=== PATIENT | female | born 1985 | race Caucasian/White ===

== ENCOUNTER 2019-07-02 20:51 | Inpatient (IN) | payer MEDICARE, MEDICAID ==
--- NOTE | 2019-07-02 21:14 | ED ---
Medical Screening - HPI Summary HPI Summary: Patient with history of schizo affective disorder and bipolar presents with father wishing for mental health evaluation. Patient was calm in the waiting room, but during history of present illness was angry and loud with rambling speech. Father states he is concerned she is starting a manic episode, concerned she is a threat to herself. Patient denies SI, HI, any symptoms of illness, injury or pain. Upon secondary evaluation with attending Dr. Webster patient started screaming, talking about another life. Denies EtOH or recreational drug use. - History of Current Complaint Chief Complaint: EDPsychosocial Stated Complaint: MHE PER PT Time Seen by Provider: 07/02/19 21:12 Onset/Duration: Started Hours Ago Severity: moderate PMH/Surg Hx/FS Hx/Imm Hx Endocrine/Hematology History: Reports: Hx Thyroid Disease Cardiovascular History: Reports: Hx Hypercholesterolemia, Hx Hypertension Denies: Hx Pacemaker/ICD Respiratory History: Reports: Hx Asthma History: Denies: Hx Dialysis Sensory History: Reports: Hx Contacts or Glasses, Hx Vision Problem Denies: Hx Hearing Aid Opthamlomology History: Reports: Hx Contacts or Glasses, Hx Vision Problem EENT History: Denies: Hx Deafness Psychiatric History: Reports: Hx Anxiety, Hx Depression, Hx Inpatient Treatment , Hx Community Mental Health Tx, Hx Schizophrenia, Hx Bipolar Disorder, Hx Suicide Attempt - OD now & in late teens, Hx of Violent Episodes Against Others Denies: Hx Attention Deficit Hyperactivity Disorder, Hx Eating Disorder, Hx Panic Disorder, Hx Post Traumatic Stress Disorder, Hx Substance Abuse, Other Psychiatric Issues/Disorders - Cancer History Cancer Type, 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 Infectious Disease History: No Infectious Disease History: Denies: Traveled Outside the [place] in Last 30 Days - Family History Known Family History: Positive: Non-Contributory - Social History Alcohol Use: None Substance Use Type: Reports: None Smoking Status (MU): Current Every Day Smoker Type: Cigarettes Amount Used/How Often: 1-11/2 packs per day Review of Systems Constitutional: Negative Eyes: Negative ENT: Negative Cardiovascular: Negative Respiratory: Negative Gastrointestinal: Negative Genitourinary: Negative Musculoskeletal: Negative Skin: Negative Neurological: Negative Positive: Other All Other Systems Reviewed And Are Negative: Yes Physical Exam - Summary Physical Exam Summary: Patient angry, screaming, rambling speech. Coherent, alert and oriented, no visible sign of intoxication. Triage Information Reviewed: Yes Vital Signs On Initial Exam: Initial Vitals Temp Pulse Resp BP Pulse Ox 97.3 F 117 20 150/119 97 07/02/19 21:00 07/02/19 21:00 07/02/19 21:00 07/02/19 21:00 07/02/19 21:00 Vital Signs Reviewed: Yes Appearance: Positive: Well-Appearing Skin: Positive: Warm Head/Face: Positive: Normal Head/Face Inspection Eyes: Positive: Normal Neck: Positive: Supple Respiratory/Lung Sounds: Positive: Clear to Auscultation Cardiovascular: Positive: Normal Abdomen Description: Positive: Nontender Musculoskeletal: Positive: Normal Neurological: Positive: Normal Psychiatric: Positive: Other AVPU Assessment: Alert - Diya Coma Scale Best Eye Response: 4 - Spontaneous Best Motor Response: 6 - Obeys Commands Best Verbal Response: 5 - Oriented Coma Scale Total: 15 Diagnostics - Vital Signs Vital Signs Temp Pulse Resp BP Pulse Ox 07/02/19 21:00 97.3 F 117 20 150/119 97 - Laboratory Result Diagrams: 07/02/19 22:41 07/02/19 22:41 Lab Statement: Any lab studies that have been ordered have been reviewed, and results considered in the medical decision making process. Course/Dx - Course Course Of Treatment: Patient with history of schizo affective disorder and bipolar presents with father wishing for mental health evaluation. Patient was calm in the waiting room, but during history of present illness was angry and loud with rambling speech. Father states he is concerned she is starting a manic episode, concerned she is a threat to herself. Patient denies SI, HI, any symptoms of illness, injury or pain. Upon secondary evaluation with attending Dr. Webster patient started screaming, talking about another life. Denies EtOH or recreational drug use. B-52 administered for agitation. Vital signs within normal limits. Labs unremarkable. Involuntarily admission per Dr. Hayden of mental health. - Diagnoses Provider Diagnoses: Bipolar 1 disorder Discharge ED - Sign-Out/Discharge Documenting (check all that apply): Patient Departure - Discharge Plan Condition: Good [place] [place] Disposition and Condition Condition: GOOD Disposition[place] [facility] [place]
[2019-07-02] MEDS ORDERED: LORazepam INJ* 2 MG/ML 1 ML VIAL ONE (21:42)
[2019-07-02] MEDS ORDERED: diPHENhydraMINE IV* 50 MG/ML 1 ml VIAL (BENADRYL) ONE (21:50)
[2019-07-02] MEDS ORDERED: Haloperidol INJ IV/IM* 5 MG/ML AMP ONE (21:50)
[2019-07-02 22:58] LABS: ABS Basophils 0.1 10^3/ul (0-0.2); ABS Lymphocytes 2.7 10^3/ul (1.0-4.8); ABS Monocytes 0.5 10^3/ul (0-0.8); ABS Neutrophils 5.7 10^3/ul (1.5-7.7); Hematocrit 40 % (35-47); Hemoglobin 13.7 g/dL (12.0-16.0); Lymphocyte % 30.4 %; Mean Corpuscular HGB Conc 34 g/dL (31-36); Mean Corpuscular Hemoglobin 29 pg (27-31); Mean Corpuscular Volume 85 fL (80-97); Nucleated Red Blood Cells % 0.1; Platelet Count 277 10^3/uL (150-450); Red Blood Count 4.74 10^6 /uL (3.70-4.87); Red Cell Distribution Width 14 % (10-15)
[2019-07-02 23:04] LABS: ALT 19 U/L (7-52); AST 18 U/L (13-39); Albumin 4.2 g/dL (3.2-5.2); Albumin/Globulin Ratio 1.6 (1-3); Alkaline Phosphatase 82 U/L (34-104); Anion Gap 9 mmol/L (2-11); BUN/Creatinine Ratio 16.9 (8-20); Blood Urea Nitrogen 13 mg/dL (6-24); CO2 Carbon Dioxide 24 mmol/L (22-32); Calcium 9.1 mg/dL (8.6-10.3); Chloride 106 mmol/L (101-111); EGFR African American 103.8 (>60); EGFR Non-African American 85.8 (>60); Globulin 2.6 g/dL (2-4); Glucose 120 mg/dL (70-100); Potassium 3.5 mmol/L (3.5-5.0); Sodium 139 mmol/L (135-145); Total Protein 6.8 g/dL (6.4-8.9)
[2019-07-02 23:06] LABS: Acetaminophen < 15 mcg/mL; Alcohol < 10 mg/dL (<10); Salicylate < 2.50 mg/dL (<30)
[2019-07-02 23:21] LABS: TSH (Thyroid Stimulating Horm) 3.31 mcIU/mL (0.34-5.60)
[2019-07-03] MEDS ORDERED: Acetaminophen TAB* 325 MG PO PRN (03:18)
[2019-07-03] MEDS ORDERED: Al Hydrox/Mg Hydrox/Simet LIQ* 30 ML UDC PO PRN (03:18)
[2019-07-03] MEDS: CloZAPine TAB* 25 MG TAB ONE ×2 (03:45→03:57)
[2019-07-03] MEDS ORDERED: Albuterol HFA INHALER* 8 gm MDI INH PRN (14:33)
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
[2019-07-03] MEDS ORDERED: CloZAPine TAB* 25 MG TAB PO SCH (21:00)
[2019-07-03] MEDS: CloZAPine TAB* 100 MG TAB PO SCH (22:08)
[2019-07-03] MEDS ORDERED: Temazepam CAP* 15 MG PO ONE (23:12)
[2019-07-03] MEDS: Vitamin THERAPEUTIC TAB PO SCH (23:20)
[2019-07-04 09:07] LABS: HDL Cholesterol 36.6 mg/dL
[2019-07-04] MEDS: Vitamin THERAPEUTIC TAB PO SCH (10:27)
--- NOTE | 2019-07-04 21:17 | PN ---
Subjective - Subjective Date of Service: 07/04/19 Service Type: 27208 Hosp care 15 min low complexity Subjective: Hugo reports doing well here, reporting she is not a threat to herself or others. Reports having benefitted from the milieu, and has enjoyed the recreational activities. Reports she slept well last night again. She denies any dangerous intent or plan. Objective - General Observations Appearance: Well Groomed Appears Stated Age: Yes Stature: Overweight Posture: WNL Eye Contact: Average Behavior/Activity: WNL - Interaction Observations Attitude Towards Examiner: Cooperative Stated Mood: Euthymic Affect: Full Speech Pattern/Tone: Clear, Appropriate, Normal Volume, Rambling Thought Process: Coherent, Goal Directed Perception: WNL Thought Content: WNL Hallucination Type: None, Denies Delusion Type: None, Denies - Cognitive Function Orientation: A&O x 4 Cognition: WNL Estimated Intelligence: Normal Insight: WNL Judgment Within Normal Limits: Yes Ability to Make Reasonable Decisions: Mildly Impaired - Medication Compliance Cooperative with Inpatient Medication Regimen: Yes - Group Participation Participates in Group Activities: Yes Assessment - Assessment Merits Inpatient Hospitalization: For Stabilization, Consolidate Improvements Clinical Impression: Hugo reports rapid recompensation following 2 good nights of sleep. Explained last night's events leading to giving temazepam for sleep as related to her inclination to speak in tongues. Agrees she will try not to speak in tongues again, but reports she does not want to make a promise she cannot keep. Plan - Plan Treatment Plan: Name: HUGO ANDERS Birthdate: 1985 [id number] Encourage continued engagement in the milieu and med compliance. If recompensation holds with good sleep, may be ready for discharge as planned on Saturday. Continued Medication Management: Continue Outpt Medication Medications: Current Medications Acetaminophen (Tylenol Tab*) 650 mg PO Q4H PRN PRN Reason: PAIN or TEMP > 101 F Al Hydrox/Mg Hydrox/Simethicone (Maalox Plus*) 30 ml PO Q4H PRN PRN Reason: INDIGESTION Albuterol (Ventolin Hfa Inhaler*) 2 puff INH Q2H PRN PRN Reason: SOB/WHEEZING Clozapine (Clozapine Tab*) 400 mg PO BEDTIME ROCÍO Last Admin: 07/03/19 22:08 Dose: 400 mg Multivitamins (Theragran Tab*) 1 tab PO DAILY ROCÍO Last Admin: 07/04/19 10:27 Dose: Not Given Nicotine Polacrilex (Nicotine Gum*) 2 mg PO Q2H PRN PRN Reason: CRAVINGS - Discharge Plan Discharge Plan: Outpatient Follow Up Outpatient Program: [facility]
[2019-07-04] MEDS: CloZAPine TAB* 100 MG TAB PO SCH (21:33)
[2019-07-05] MEDS ORDERED: LORazepam TAB(*) 1 MG ONE (07:49)
[2019-07-05] MEDS ORDERED: LORazepam TAB(*) 1 MG PO ONE (08:00)
[2019-07-05] MEDS: Vitamin THERAPEUTIC TAB PO SCH (09:27)
[2019-07-05] MEDS ORDERED: chlorproMAZINE TAB* 25 MG ONE (14:55)
[2019-07-05] MEDS ORDERED: chlorproMAZINE TAB* 25 MG PO ONE (15:00)
[2019-07-05] MEDS ORDERED: diPHENhydraMINE IV* 50 MG/ML 1 ml VIAL (BENADRYL) ONE (15:21)
[2019-07-05] MEDS ORDERED: chlorproMAZINE INJ* 25 MG/ML 2 ML (50 MG) ONE (15:22)
[2019-07-05] MEDS ORDERED: LORazepam INJ* 2 MG/ML 1 ML VIAL ONE (15:26)
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
[2019-07-05] MEDS: CloZAPine TAB* 100 MG TAB PO SCH (22:12)
[2019-07-06] MEDS: Vitamin THERAPEUTIC TAB PO SCH (09:42)
[2019-07-06] MEDS ORDERED: chlorproMAZINE TAB* 100 MG PO PRN (11:13)
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
[2019-07-06] MEDS ORDERED: Divalproex DR TAB(*) 500 MG PO SCH (21:00)
[2019-07-06] MEDS: CloZAPine TAB* 100 MG TAB PO SCH (21:43)
[2019-07-06] MEDS: LORazepam TAB(*) 1 MG PO SCH (21:43)
[2019-07-07] MEDS: LORazepam TAB(*) 1 MG PO PRN (08:55)
[2019-07-07] MEDS: Vitamin THERAPEUTIC TAB PO SCH (08:55)
[2019-07-07] MEDS ORDERED: Divalproex DR TAB(*) 500 MG PO SCH (09:00)
[2019-07-07] MEDS: Nicotine* 2MG (FRUIT FLAVOR) GUM PO PRN ×2 (09:48→20:35)
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
[2019-07-07] MEDS: OXcarbazepine TAB(*) 300 MG PO SCH (22:07)
[2019-07-07] MEDS: CloZAPine TAB* 100 MG TAB PO SCH (22:08)
[2019-07-07] MEDS: LORazepam TAB(*) 1 MG PO SCH (22:09)
[2019-07-08] MEDS: OXcarbazepine TAB(*) 300 MG PO SCH ×2 (10:38→22:03)
[2019-07-08] MEDS: Vitamin THERAPEUTIC TAB PO SCH (10:38)
--- NOTE | 2019-07-08 12:48 | PN ---
BSU: Group Therapy Note - Service Type Service Type: [id number] Group Psychotherapy - Cognitive Behavioral Group Therapy ( CBT):Patient presented in CBT programming as disorganized and disruptive in discussion and needed repeated redirection to attend to presented materials.
[2019-07-08] MEDS: Nicotine* 2MG (FRUIT FLAVOR) GUM PO PRN ×2 (13:52→17:35)
[2019-07-08] MEDS: LORazepam TAB(*) 1 MG PO PRN (14:44)
--- NOTE | 2019-07-08 16:35 | PN ---
Subjective - Subjective Date of Service: 07/08/19 Service Type: 11287 Hosp care 25 min moderate complexity Subjective: Hugo is doing well. She and I met with her friend Jazmin and discussed goals and restrictions that she would like to put in place. She acknowledges that she sometimes "bite[s] off more than I can chew." She is planning on taking some days off for herself to reorganize what she would like to do. For example, she is interested in taking fewer classes at 3 and also working a bit less. Objective - General Observations Appearance: Neat Appears Stated Age: Yes Stature: Overweight Posture: WNL Eye Contact: Average Behavior/Activity: WNL - Interaction Observations Attitude Towards Examiner: Cooperative, Anxious Stated Mood: Dysphoric Affect: Blunted Speech Pattern/Tone: Clear Thought Process: Coherent Perception: WNL Thought Content: Preoccupation/Ruminations Hallucination Type: None Delusion Type: None - Cognitive Function Orientation: A&O x 4 Level of Consciousness: Awake, Alert, Appropriate Cognition: WNL Estimated Intelligence: Normal Insight: WNL Judgment Within Normal Limits: Yes - Medication Compliance Cooperative with Inpatient Medication Regimen: Yes - Group Participation Participates in Group Activities: Yes Assessment - Assessment Merits Inpatient Hospitalization: For Immediate Safety Inpatient DSM-V Dx: F25.0 Clinical Impression: Hugo is a 33-year-old white woman who is diagnosed with schizoaffective disorder. She came to the hospital with her father because she had been speaking about odd thoughts and then became violent in the Emergency Department. She is now calmer and taking medications that will affect her mood stability. Plan - Plan Treatment Plan: Name: HUGO ANDERS Birthdate: 1985 [id number] 07/05/19 Hugo reports rapid recompensation following 2 good nights of sleep. Explained last night's events leading to giving temazepam for sleep as related to her inclination to speak in tongues. Agrees she will try not to speak in tongues again, but reports she does not want to make a promise she cannot keep. Encourage continued engagement in the milieu and med compliance. If recompensation holds with good sleep, may be ready for discharge as planned on Saturday. 07/06/19 Hugo continues to be very symptomatic. We will add Depakote 500 QAM and 1000 QHS, as this is what she used to take about four years ago when she was outpatient. I will also include Ativan at bedtime to help her sleep. Discharge is still likely this week. 07/07/19 Hugo is improved. She appears to be at baseline. Unfortunately, this fluctuation in healthy behavior has happened before with decompensation following it. We will start Trileptal tonight 300 mg BID. 07/08/19 Hugo is stabilizing. She did not decompensate in any detectable way today. She is doing well and on schedule to be discharged tomorrow. Continued Medication Management: Different Medication Medications: Current Medications Acetaminophen (Tylenol Tab*) 650 mg PO Q4H PRN PRN Reason: PAIN or TEMP > 101 F Al Hydrox/Mg Hydrox/Simethicone (Maalox Plus*) 30 ml PO Q4H PRN PRN Reason: INDIGESTION Albuterol (Ventolin Hfa Inhaler*) 2 puff INH Q2H PRN PRN Reason: SOB/WHEEZING Chlorpromazine HCl (Thorazine Tab*) 100 mg PO Q3H PRN PRN Reason: AGITATION Clozapine (Clozapine Tab*) 400 mg PO BEDTIME [facility] Last Admin: 07/07/19 22:08 Dose: 400 mg Lorazepam (Ativan Tab(*)) 2 mg PO Q6H PRN PRN Reason: Anxiety/agitation Last Admin: 07/08/19 14:44 Dose: 2 mg Lorazepam (Ativan Tab(*)) 1 mg PO BEDTIME [facility] Last Admin: 07/07/19 22:09 Dose: 1 mg Multivitamins (Theragran Tab*) 1 tab PO DAILY [facility] Last Admin: 07/08/19 10:38 Dose: 1 tab Nicotine Polacrilex (Nicotine Gum*) 2 mg PO Q2H PRN PRN Reason: CRAVINGS Last Admin: 07/08/19 13:52 Dose: 2 mg Oxcarbazepine (Trileptal Tab(*)) 300 mg PO BID [facility] Last Admin: 07/08/19 10:38 Dose: 300 mg - Discharge Plan Discharge Plan: Outpatient Follow Up Outpatient Program: [facility]
--- NOTE | 2019-07-08 16:38 | PN ---
BSU: Group Therapy Note - Service Type Service Type: [id number] Group Psychotherapy - Medication Education Group: Patient joined group and was intermittently in room. Patient asked questions that were not particularly on topic. Patient receptive to redirection when monopolizing group.
[2019-07-08] MEDS: LORazepam TAB(*) 1 MG PO SCH (22:03)
[2019-07-08] MEDS: CloZAPine TAB* 100 MG TAB PO SCH (22:03)
[2019-07-09] MEDS: OXcarbazepine TAB(*) 300 MG PO SCH (10:19)
[2019-07-09] MEDS: Vitamin THERAPEUTIC TAB PO SCH (10:19)
[2019-07-09 11:43] VITALS: BP 140/85
[2019-07-09] MEDS: Nicotine* 2MG (FRUIT FLAVOR) GUM PO PRN (14:12)
--- NOTE | 2019-07-10 01:49 | DS ---
CC: [facility]; Dr. Jimenez * DISCHARGE SUMMARY: DATE OF ADMISSION: 07/03/19 DATE OF DISCHARGE: 07/09/19 PROVIDER: Carrie Bhandari NP in Psychiatry. SUPERVISING PHYSICIAN: Peter Hayden MD * (DICTATED BY CARRIE BHANDARI NP ) DIAGNOSIS: Schizoaffective disorder, bipolar type. CONDITION AT THE TIME OF DISCHARGE: Improved, psychiatrically cleared, stable. Niya participated in groups and was social with peers. Her father is agreeable to her discharge, as is Niya. She has done well here psychiatrically. She tolerated the addition of Trileptal well. She will be attending [facility]. MENTAL STATUS EXAM: At the time of discharge, Niya is calm, cooperative, and makes good eye contact. She is alert and oriented x4. Her grooming is adequate. Her speech pace is slightly slowed. Thought processes are logical. She is not psychotic or delusional. She denies AH, VH, SI, and HI. Insight and judgment are fair to good. She is willing to follow up and urged to see a therapist. DISCHARGE INSTRUCTIONS TO THE PATIENT: A. Medications: 1. Albuterol inhaler 2 puffs q.2 hours p.r.n. shortness of breath. 2. Clozapine 400 mg at bedtime. 3. Trileptal 300 mg twice a day, dispensed 60. B. Diet is regular. C. Activities are as tolerated. She is a smoker but has declined a referral to the [facility] Smokers' Quitline at this time. If she decides to access this free service in the future, she can contact the Quitline toll free at . There are no studies pending at the time of discharge. D. Followup care: She has an appointment at [facility] with Ella Perez on 07/13/19 at 9:40 in the morning. She agreed to participate in the CAP Cohort, which can assist the patients with transportation to their first appointments and followups. Niya will also be followed by [facility] as part of the cohort. She is asked to potentially use Medicaid transportation services. She can call [phone]. Her Medicaid number is [id number] and she will receive instruction and how to use that service. She also is recommended to make an appointment with her primary care provider, Dr. Yanet Jimenez and that person is on [address] at [facility]. E. Disposition: Niya is being discharged home with her father where they live together. F. Substance abuse followup is not indicated. HOSPITAL COURSE: A. Chief complaint: "I was talking to my dad about some thoughts I was having and it made him worry, I am upset to be here." Niya is a 33-year-old single white female with a history of schizoaffective disorder, who arrives brought in by the police and her father and is here on a 9.39 status after engaging in some very disorganized behavior before her arrival in the emergency department and once she was there she was discussing being experimented on by a chip from the president. She was discussing the Bible and court. She talked about telepathy, mind control and she also tried to elope from the emergency department. When I meet with Niya, she is organized, pleasant, although drowsy. She states she was having thoughts that she was sharing with her dad that she is currently dismissive of these thoughts and states that they are "stuff mostly about the past, present and future." Niya is very tired at this point, perhaps in part due to the fact that she is not getting enough sleep. She is only getting 5 to 6 hours of sleep in the morning. She also moved on 06/27/19 and recently started [facility] [employer] for [email or web address] services. At this point, seeing her makes it unclear why she was admitted. She appears to be organized and logical though tired. Reading the evaluation, however, makes it clear that she required admission. At this point, she does not have a significant number of symptoms that would cause me to categorize her as having balbir or psychosis. She is a little indiscrete, her gown she is wearing is up around her upper thighs, but it is not done in a provocative way, she simply appears to be careless. She does have a sleep deficit, but it is not due to balbir, it is due to her having more things to do in her life than she is used to having. B. Psychiatric treatment was rendered. Niya was admitted to the adult behavioral unit and placed on 15-minute checks for her own safety. She did advance to 30-minute checks and staff pass. On 07/05/19, Niya reported rapid re-compensation following 2 good nights of sleep. She explained that there were events (delusions and disorganized behavior) on 07/04/19 that required her getting temazepam for sleep, which was related to her inclination to speak in tongues. She agreed at that point she would try not to speak in tongues again but reports also that she does not want to make a promise she could not keep. On that day, we encouraged continued engagement in the milieu and medication compliance. If the recompensation had held with good sleep, she could have been ready for discharge as planned on Saturday (07/06/19). On 07/06/19, Niya continued to be very symptomatic: she was manic, she would walk naked down the halls, and behave very strangely. We added Depakote 500 in the morning and 1000 at bedtime as this is what she used to take approximately 4 years ago when she was outpatient. I also included Ativan at bedtime to help her sleep. At that point, we believed discharge to still be likely that week. On 07/07/19, Niya improved. She appeared to be at her baseline. Unfortunately , this fluctuation in healthy behavior has happened before with decompensation following it. We will start Trileptal tonight at 300 mg b.i.d. On 07/08/19, Niya continued to stabilize and she did not decompensate in any detectable way today. She is doing well and on schedule to be discharged tomorrow. On 07/09/19, Niya was pleasant, she was clean and tidy, she packed her belongings and was eager to leave at the 4 p.m. discharge time with her father. No medications were discontinued from home. She maintained being on clozapine 400 at bedtime and she tolerated the Trileptal 300 b.i.d. I was hoping to increase that before she left, but she was not here for long enough to do that. It should be noted that her hemoglobin A1c is 5.5. Her triglycerides are 163 , cholesterol is 162, LDL cholesterol is 93, HDL cholesterol is 36.3. Incidentally, her TSH is 3.31. On 07/02/19, her red blood cells were 4.74, her white blood cells were 9.0, absolute neutrophils were 5.7. I did speak with her father, Frankie, he was pleasant and eager to have her come home as long as she was well. He was even willing to take her a day early , but we believed that having an additional day for stabilization would be beneficial for Niya. It was discussed with Niya that she needs to sleep regularly and needs to get about 8 hours or more every night. It was discussed that she tends to "bite off more than I can chew" and she was encouraged to consider cutting back on her [employer] obligations. She does also want a job, but she was cautioned that she needs to be careful with how much she takes on. She is future oriented and is significantly improved. She is not distractible. She recognizes that walking naked down the [place] is inappropriate and not something she would normally do, but stopped short of agreeing that she was manic. Her ideas are more focused, her activity is normal, she is sleeping well, and she is appropriately talkative. CARRIE BHANDARI, MONICO [id number]/[facility] #: [id number] [place]
== END 2019-07-09 17:56 | disposition home or self-care (01) | DRG 885 ==
LOC: ED 20:51 → BSU 07-03 03:24
PROVIDERS: ADMIT Psychiatry & Neurology Psychiatry; ATTEND Psychiatry & Neurology Psychiatry
PROC: GZHZZZZ Group Psychotherapy (ICD-10-PCS; principal; 2019-07-08)
DX: F25.0 Schizoaffective disorder, bipolar type (principal); Z68.42 Body mass index [BMI] 45.0-49.9, adult; E78.00 Pure hypercholesterolemia, unspecified; I10 Essential (primary) hypertension; J45.909 Unspecified asthma, uncomplicated; F41.9 Anxiety disorder, unspecified; F32.9 Major depressive disorder, single episode, unspecified; F17.210 Nicotine dependence, cigarettes, uncomplicated; E66.9 Obesity, unspecified; E03.9 Hypothyroidism, unspecified; Z91.5 Personal history of self-harm; Z85.89 Personal history of malignant neoplasm of other organs and systems; Z81.8 Family history of other mental and behavioral disorders
CPT/HCPCS: 36415; 80053; 80061; 80320; 80329; 83036; 84443; 85025; 90853; 99222; 99231; 99232; 99238; 99284; A9270-GY; G0480; J1200; J1630; J2060

== ENCOUNTER 2019-07-22 19:38 | Inpatient (IN) | payer MEDICARE, MEDICAID ==
[2019-07-22 20:24] LABS: ABS Basophils 0.1 10^3/ul (0-0.2); ABS Lymphocytes 2.8 10^3/ul (1.0-4.8); ABS Monocytes 0.7 10^3/ul (0-0.8); ABS Neutrophils 7.7 10^3/ul (1.5-7.7); Hematocrit 40 % (35-47); Hemoglobin 13.5 g/dL (12.0-16.0); Mean Corpuscular HGB Conc 34 g/dL (31-36); Mean Corpuscular Hemoglobin 29 pg (27-31); Mean Corpuscular Volume 85 fL (80-97); Mean Platelet Volume 7.8 fL (7.4-10.4); Platelet Count 267 10^3/uL (150-450); Red Blood Count 4.73 10^6 /uL (3.70-4.87); Red Cell Distribution Width 14 % (10-15); White Blood Count 11.4 10^3/uL (3.5-10.8)
[2019-07-22 20:28] LABS: Urine Appearance Clear; Urine Bilirubin Negative (Negative); Urine Blood Negative (Negative); Urine Color Yellow; Urine Glucose Negative (Negative); Urine Ketones Negative (Negative); Urine Nitrite Negative (Negative); Urine Protein Negative (Negative); Urine Specific Gravity 1.015 (1.010-1.030); Urine Urobilinogen Negative (Negative)
[2019-07-22 20:44] LABS: ALT 14 U/L (7-52); AST 12 U/L (13-39); Albumin 4.2 g/dL (3.2-5.2); Albumin/Globulin Ratio 1.6 (1-3); Alkaline Phosphatase 90 U/L (34-104); Anion Gap 10 mmol/L (2-11); BUN/Creatinine Ratio 18.8 (8-20); Blood Urea Nitrogen 12 mg/dL (6-24); CO2 Carbon Dioxide 22 mmol/L (22-32); Calcium 9.3 mg/dL (8.6-10.3); Chloride 107 mmol/L (101-111); EGFR African American 128.5 (>60); EGFR Non-African American 106.2 (>60); Globulin 2.6 g/dL (2-4); Glucose 107 mg/dL (70-100); Potassium 3.4 mmol/L (3.5-5.0); Sodium 139 mmol/L (135-145); Total Protein 6.8 g/dL (6.4-8.9)
[2019-07-22 20:46] LABS: Urine Benzodiazepine Screen None Detected (None Detect); Urine Opiates Screen None Detected (None Detect)
[2019-07-22 20:50] LABS: HCG Pregnancy < 0.60 mIU/mL
[2019-07-22 20:56] LABS: Acetaminophen < 15 mcg/mL; Alcohol < 10 mg/dL (<10); Salicylate < 2.50 mg/dL (<30)
--- NOTE | 2019-07-22 21:08 | ED ---
Psychiatric Complaint - HPI Summary HPI Summary: Pt is a 33 y/o F presenting to the ED for a MHE. Pt reports recent stress and racing thoughts. Pt was previously seen at [facility] on 07/14/2019 and had her medication changed to Topiramate which she has taken for 2 weeks. She states that she believes that she was discharged too early. Pt reports she does not like being at home and she lives in [place] with her parents. She describes auditory and visual hallucinations as things are not what they appear to be . Patient reports Hx of self-harm and notes Hx of suicide attempts via OD on medications. Pt has a PMHx of affective schizophrenia for which she is being currently treated and a FMHx of cancer. Pt takes Papilperidone. Pt is allergic to Sulfa drugs. She admits she smokes cigarettes but denies drug or alcohol use. - History Of Current Complaint Chief Complaint: EDMentalHealth Time Seen by Provider: 07/22/19 20:04 Hx Obtained From: Patient Onset/Duration: Lasting Weeks, Still Present Timing: Weeks Severity Initially: Moderate Severity Currently: Moderate Aggravating Factor(s): Recent Stress Alleviating Factor(s): Nothing Associated Signs And Symptoms: Positive: Hallucinating Related History: Positive For: Prior Psychiatric Issues Has Suicidal: Reports: Has Prior Attempt(s) - OD with medication - Allergies/Home Medications Allergies/Adverse Reactions: Allergies Allergy/AdvReac Type Severity Reaction Status Date / Time Sulfa (Sulfonamide Allergy Unknown Unknown Verified 07/03/19 15:09 Antibiotics) Reaction Details PMH/Surg Hx/FS Hx/Imm Hx Previously Healthy: Yes Endocrine/Hematology History: Reports: Hx Thyroid Disease Cardiovascular History: Reports: Hx Hypercholesterolemia, Hx Hypertension Denies: Hx Pacemaker/ICD Respiratory History: Reports: Hx Asthma History: Denies: Hx Dialysis Sensory History: Reports: Hx Contacts or Glasses, Hx Vision Problem Denies: Hx Deafness, Hx Hearing Aid Opthamlomology History: Reports: Hx Contacts or Glasses, Hx Vision Problem Psychiatric History: Reports: Hx Anxiety, Hx Depression, Hx Inpatient Treatment , Hx Community Mental Health Tx, Hx Schizophrenia, Hx Bipolar Disorder, Hx Suicide Attempt - OD now & in late teens, Hx of Violent Episodes Against Others Denies: Hx Attention Deficit Hyperactivity Disorder, Hx Eating Disorder, Hx Panic Disorder, Hx Post Traumatic Stress Disorder, Hx Substance Abuse, Other Psychiatric Issues/Disorders - Cancer History Cancer Type, 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 Infectious Disease History: No Infectious Disease History: Denies: Traveled Outside the [place] in Last 30 Days - Family History Known Family History: Positive: Other - FMHx of bipolar disorder - Social History Alcohol Use: None Substance Use Type: Reports: None Smoking Status (MU): Current Every Day Smoker Type: Cigarettes Amount Used/How Often: 1-11/2 packs per day Review of Systems Negative: Fever - on vitals, temp is 99.5 F Positive: Other - Positive auditory and visual hallucinations, positive racing thoughts; negative self-harm All Other Systems Reviewed And Are Negative: Yes Physical Exam - Summary Physical Exam Summary: General: Well-developed, Well-nourished FEMALE. No acute distress. Morbidly obese. HEENT: Normocephalic, Atraumatic. Eyes: Conjuctiva normal, PERRL. Ears: TMs within normal limits. Nares: (-) discharge, (-) erythema. Oropharynx: Clear, mucous membranes moist, (-) exudates. Neck: Soft, FROM, (-) lymphadenopathy, (-) thyromegaly, (-) JVD. Cardiovascular: Normal sinus rhythm, (-) murmur. Lungs: Clear to auscultation bilaterally (-) wheezes, (-) rales, (-) rhonchi. Abdomen: Soft, non-tender, non-distended, (-) organomegaly, normal bowel sounds. Back: (-) CVA tenderness Extremities: No edema. Skin: Warm, dry, (-) rash. Neuro: Alert and oriented x3, no focal deficits. Psychiatric: Mood normal, flat affect. Triage Information Reviewed: Yes Vital Signs On Initial Exam: Initial Vitals Temp Pulse Resp BP Pulse Ox 99.5 F 120 17 126/91 97 07/22/19 19:44 07/22/19 19:44 07/22/19 19:44 07/22/19 19:44 07/22/19 19:44 Vital Signs Reviewed: Yes Diagnostics - Vital Signs Vital Signs Temp Pulse Resp BP Pulse Ox 07/22/19 19:44 99.5 F 120 17 126/91 97 - Laboratory Lab Results: Lab Results 07/22/19 07/22/19 07/22/19 Range/Units 19:57 19:57 20:16 WBC 11.4 H (3.5-10.8) 10^3/uL RBC 4.73 (3.70-4.87) 10^6 /uL Hgb 13.5 (12.0-16.0) g/dL Hct 40 (35-47) % MCV 85 (80-97) fL MCH 29 (27-31) pg MCHC 34 (31-36) g/dL RDW 14 (10-15) % Plt Count 267 (150-450) 10^3/uL MPV 7.8 (7.4-10.4) fL Neut % (Auto) 67.9 % Lymph % (Auto) 25.0 % Mercer % (Auto) 6.4 % Eos % (Auto) 0.0 % Baso % (Auto) 0.7 % Absolute Neuts (auto) 7.7 (1.5-7.7) 10^3/ul Absolute Lymphs (auto) 2.8 (1.0-4.8) 10^3/ul Absolute Monos (auto) 0.7 (0-0.8) 10^3/ul Absolute Eos (auto) 0.0 (0-0.6) 10^3/ul Absolute Basos (auto) 0.1 (0-0.2) 10^3/ul Absolute Nucleated RBC 0.0 10^3/ul Nucleated RBC % 0.0 Sodium (135-145) mmol/L Potassium (3.5-5.0) mmol/L Chloride (101-111) mmol/L Carbon Dioxide (22-32) mmol/L Anion Gap (2-11) mmol/L BUN (6-24) mg/dL Creatinine (0.51-0.95) mg/dL Est GFR ( Amer) (>60) Est GFR (Non-Af Amer) (>60) BUN/Creatinine Ratio (8-20) Glucose (70-100) mg/dL Calcium (8.6-10.3) mg/dL Total Bilirubin (0.2-1.0) mg/dL AST (13-39) U/L ALT (7-52) U/L Alkaline Phosphatase (34-104) U/L Total Protein (6.4-8.9) g/dL Albumin (3.2-5.2) g/dL Globulin (2-4) g/dL Albumin/Globulin Ratio (1-3) TSH Beta HCG, Quant mIU/mL Urine Color Yellow Urine Appearance Clear Urine pH 6.0 (5-9) Ur Specific [place] 1.015 (1.010-1.030) Urine Protein Negative (Negative) Urine Ketones Negative (Negative) Urine Blood Negative (Negative) Urine Nitrate Negative (Negative) Urine Bilirubin Negative (Negative) Urine Urobilinogen Negative (Negative) Ur Leukocyte Esterase Negative (Negative) Urine Glucose Negative (Negative) Salicylates (<30) mg/dL Urine Opiates Screen None detected (None Detect) Acetaminophen mcg/mL Ur Barbiturates Screen None detected (None Detect) Ur Phencyclidine Scrn None detected (None Detect) Ur Amphetamines Screen None detected (None Detect) U Benzodiazepines Scrn None detected (None Detect) Urine Cocaine Screen None detected (None Detect) U Cannabinoids Screen None detected (None Detect) Serum Alcohol (<10) mg/dL 07/22/19 Range/Units 20:16 WBC (3.5-10.8) 10^3/uL RBC (3.70-4.87) 10^6 /uL Hgb (12.0-16.0) g/dL Hct (35-47) % MCV (80-97) fL MCH (27-31) pg MCHC (31-36) g/dL RDW (10-15) % Plt Count (150-450) 10^3/uL MPV (7.4-10.4) fL Neut % (Auto) % Lymph % (Auto) % Mercer % (Auto) % Eos % (Auto) % Baso % (Auto) % Absolute Neuts (auto) (1.5-7.7) 10^3/ul Absolute Lymphs (auto) (1.0-4.8) 10^3/ul Absolute Monos (auto) (0-0.8) 10^3/ul Absolute Eos (auto) (0-0.6) 10^3/ul Absolute Basos (auto) (0-0.2) 10^3/ul Absolute Nucleated RBC 10^3/ul Nucleated RBC % Sodium 139 (135-145) mmol/L Potassium 3.4 L (3.5-5.0) mmol/L Chloride 107 (101-111) mmol/L Carbon Dioxide 22 (22-32) mmol/L Anion Gap 10 (2-11) mmol/L BUN 12 (6-24) mg/dL Creatinine 0.64 (0.51-0.95) mg/dL Est GFR ( Amer) 128.5 (>60) Est GFR (Non-Af Amer) 106.2 (>60) BUN/Creatinine Ratio 18.8 (8-20) Glucose 107 H (70-100) mg/dL Calcium 9.3 (8.6-10.3) mg/dL Total Bilirubin 0.40 (0.2-1.0) mg/dL AST 12 L (13-39) U/L ALT 14 (7-52) U/L Alkaline Phosphatase 90 (34-104) U/L Total Protein 6.8 (6.4-8.9) g/dL Albumin 4.2 (3.2-5.2) g/dL Globulin 2.6 (2-4) g/dL Albumin/Globulin Ratio 1.6 (1-3) TSH Pending Beta HCG, Quant < 0.60 mIU/mL Urine Color Urine Appearance Urine pH (5-9) Ur Specific [place] (1.010-1.030) Urine Protein (Negative) Urine Ketones (Negative) Urine Blood (Negative) Urine Nitrate (Negative) Urine Bilirubin (Negative) Urine Urobilinogen (Negative) Ur Leukocyte Esterase (Negative) Urine Glucose (Negative) Salicylates < 2.50 (<30) mg/dL Urine Opiates Screen (None Detect) Acetaminophen < 15 mcg/mL Ur Barbiturates Screen (None Detect) Ur Phencyclidine Scrn (None Detect) Ur Amphetamines Screen (None Detect) U Benzodiazepines Scrn (None Detect) Urine Cocaine Screen (None Detect) U Cannabinoids Screen (None Detect) Serum Alcohol < 10 (<10) mg/dL Result Diagrams: 07/22/19 20:16 07/22/19 20:16 Lab Statement: Any lab studies that have been ordered have been reviewed, and results considered in the medical decision making process. Re-Evaluation - Re-Evaluation First Eval Re-Evaluation Time: 21:17 Comment: Patient is medically cleared for MHE. Course/Dx - Course Course Of Treatment: Pt is a 33 y/o F presenting to the ED for a MHE. Pt reports recent stress and racing thoughts. Pt was previously seen at [facility] on and had her medication changed to Topiramate which she has taken for 2 weeks. She states that she believes that she was discharged too early. Pt reports she does not like being at home and she lives in [place] with her parents. She describes auditory and visual hallucinations as things are not what they appear to be . Patient reports Hx of self-harm and notes Hx of suicide attempts via OD on medications. Pt has a PMHx of affective schizophrenia for which she is being currently treated and a FMHx of cancer. Pt takes Papilperidone. Pt is allergic to Sulfa drugs. She admits she smokes cigarettes but denies drug or alcohol use. scissors grinder Rich reports that pt s case has been reviewed by Dr. Mtz. Pt will be admitted with a diagnosis of bipolar disorder. - Differential Dx/Clinical Impression Provider Diagnosis: Bipolar disorder Discharge ED - Sign-Out/Discharge Documenting (check all that apply): Patient Departure - Admit All imaging exams completed and their final reports reviewed: No Studies Patient Received Moderate/Deep Sedation with Procedure: No - Discharge Plan Condition: Stable Disposition: PSYCHIATRIC FACILITY-[facility] - Billing Disposition and Condition Condition: STABLE Disposition: Psychiatric Facility [facility] - Attestation Statements Document Initiated by Nichelleibe: Yes Documenting Scribe: Renato Márquez Provider For Whom Jon is Documenting (Include Credential): Steph Webster MD. Scribe Attestation: Renato East scribed for Steph Webster MD. on 07/23/19 at 0657. Scribe Documentation Reviewed: Yes Provider Attestation: The documentation as recorded by the Renato klein accurately reflects the service I personally performed and the decisions made by me, Steph Webster MD. Status of Scribe Document: Viewed
[2019-07-22 21:12] LABS: TSH (Thyroid Stimulating Horm) 3.51 mcIU/mL (0.34-5.60)
[2019-07-23] MEDS ORDERED: OXcarbazepine TAB(*) 300 MG PO ONE (01:43)
[2019-07-23] MEDS ORDERED: CloZAPine TAB* 100 MG TAB PO ONE (01:43)
[2019-07-23] MEDS ORDERED: LORazepam INJ* 2 MG/ML 1 ML VIAL IM ONE (04:46)
[2019-07-23] MEDS ORDERED: Lorazepam PYXIS KEY PRN (04:46)
[2019-07-23] MEDS ORDERED: LORazepam TAB(*) 1 MG PO ONE ×2 (04:56→12:44)
[2019-07-23] MEDS ORDERED: Acetaminophen TAB* 325 MG PO PRN (05:53)
[2019-07-23] MEDS ORDERED: Al Hydrox/Mg Hydrox/Simet LIQ* 30 ML UDC PO PRN (05:54)
[2019-07-23] MEDS ORDERED: Albuterol HFA INHALER* 8 gm MDI INH PRN (05:55)
[2019-07-23] MEDS ORDERED: OXcarbazepine TAB(*) 300 MG PO SCH (09:00)
[2019-07-23] MEDS ORDERED: LORazepam TAB(*) 1 MG ONE (12:49)
[2019-07-23] MEDS: Multivitamins/Minerals TAB PO SCH (13:31)
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
[2019-07-23] MEDS: Nicotine* 2MG (FRUIT FLAVOR) GUM PO PRN (19:30)
[2019-07-23] MEDS: CloZAPine TAB* 100 MG TAB PO SCH (22:10)
[2019-07-24 09:04] LABS: HDL Cholesterol 33.7 mg/dL
[2019-07-24] MEDS: Multivitamins/Minerals TAB PO SCH (11:33)
[2019-07-24] MEDS: Nicotine* 2MG (FRUIT FLAVOR) GUM PO PRN ×4 (12:26→20:15)
--- NOTE | 2019-07-24 16:04 | PN ---
Subjective - Subjective Date of Service: 07/24/19 Service Type: [id number] Hosp care 25 min moderate complexity Subjective: Hugo's doing better today than she was yesterday. Yesterday's crying and rocking have given way to a soft sadness that Hugo continues to struggle with. She is agreeable to starting lithium in addition to the clozapine that she is taking now. She states gabapentin gave her chest pain and Trileptal felt to her like a narcotic. Hugo identifies housing as a problem. She would like to live around more people as she feels like being alone is not good for her right now. She states the paperwork for TC3 has been dealt with and she thinks that it will be in the mail when she goes home. Objective - General Observations Appearance: Well Groomed Appears Stated Age: Yes Stature: Overweight Posture: WNL Eye Contact: Average Behavior/Activity: Slowed - Interaction Observations Attitude Towards Examiner: Cooperative, Anxious Stated Mood: Dysphoric Affect: Blunted Speech Pattern/Tone: Clear Thought Process: Coherent Perception: WNL Thought Content: Depressive Thought Process: Lethality: Passive Wish, Suicidal Planning Hallucination Type: Auditory Delusion Type: Denies - Cognitive Function Orientation: A&O x 4 Level of Consciousness: Awake, Alert, Appropriate Cognition: Impaired Cognition Estimated Intelligence: Normal Insight: WNL Judgment Within Normal Limits: No Ability to Make Reasonable Decisions: Moderately Impaired - Medication Compliance Cooperative with Inpatient Medication Regimen: Yes - Group Participation Participates in Group Activities: Yes Assessment - Assessment Merits Inpatient Hospitalization: For Immediate Safety Inpatient DSM-V Dx: F25.0 Clinical Impression: Hugo is a 33-year-old white woman who comes to the hospital with complaints of rapid switching between balbir and depression and recent high stress. Plan - Plan Treatment Plan: Name: HUGO ANDERS Birthdate: 1985 [id number] Staff pass granted with consultation from several staff members. Continue with clozapine as she doesn't like Trileptal. Continued Medication Management: Different Medication Medications: Current Medications Acetaminophen (Tylenol Tab*) 650 mg PO Q4H PRN PRN Reason: PAIN; OR TEMP >101 Al Hydrox/Mg Hydrox/Simethicone (Maalox Plus*) 30 ml PO Q4H PRN PRN Reason: INDIGESTION Albuterol (Ventolin Hfa Inhaler*) 2 puff INH Q2H PRN PRN Reason: SOB/WHEEZING Clozapine (Clozapine Tab*) 400 mg PO BEDTIME ROCÍO Last Admin: 07/23/19 22:10 Dose: 400 mg Miscellaneous (Ativan Pyxis Reyes) 1 ea N/A .ATIVAN IV REYES PRN PRN Reason: PYXIS REYES Multivitamins/Minerals (Theragran/Minerals Tab*) 1 tab PO DAILY ROCÍO Last Admin: 07/24/19 11:33 Dose: Not Given Nicotine Polacrilex (Nicotine Gum*) 2 mg PO Q2H PRN PRN Reason: CRAVING Last Admin: 07/24/19 15:14 Dose: 2 mg - Discharge Plan Discharge Plan: Outpatient Follow Up
[2019-07-24] MEDS: CloZAPine TAB* 100 MG TAB PO SCH (22:12)
[2019-07-24] MEDS: Lithium Carbonate TAB* 300 MG PO SCH (22:13)
[2019-07-25] MEDS: Lithium Carbonate TAB* 300 MG PO SCH ×2 (09:23→23:06)
[2019-07-25] MEDS: Multivitamins/Minerals TAB PO SCH (09:25)
[2019-07-25] MEDS ORDERED: risperiDONE-M * 1 MG TAB.ORADIS PO ONE (14:00)
[2019-07-25] MEDS ORDERED: LORazepam TAB(*) 1 MG PO ONE (14:00)
--- NOTE | 2019-07-25 15:35 | PN ---
Subjective - Subjective Date of Service: 07/25/19 Service Type: [id number] Hosp care 25 min moderate complexity Subjective: Hugo has been having a difficult day today mostly due to sadness and confusion. Says she can't trust anybody and feels like people are out to get her. Declined stat meds as she didn't want to be a guinipig anymore. Apeared sad and depressed. Made very poor eye contacts and tearful. At one point fell asleep in her room. Denied SI or HI. Objective - General Observations Appearance: Unkempt Appears Stated Age: Yes Stature: Overweight Posture: Slumped Eye Contact: Avoidant Behavior/Activity: Slowed - Interaction Observations Attitude Towards Examiner: Mistrustful Stated Mood: Dysphoric Affect: Flat Speech Pattern/Tone: Clear, Delayed Thought Process: Coherent Perception: WNL Thought Content: Preoccupation/Ruminations, Depressive, Paranoid Thought Process: Lethality: Paranoid Ideation Hallucination Type: None, Denies Delusion Type: Persecution - Cognitive Function Orientation: A&O x 4 Level of Consciousness: Awake, Alert, Appropriate Cognition: WNL Estimated Intelligence: Normal Insight: Mostly Blames Others for Problems Judgment Within Normal Limits: No Ability to Make Reasonable Decisions: Moderately Impaired - Medication Compliance Cooperative with Inpatient Medication Regimen: Yes - Group Participation Participates in Group Activities: No Assessment - Assessment Merits Inpatient Hospitalization: For Immediate Safety, For Stabilization Clinical Impression: Still depressed and paranoid. Plan - Plan Treatment Plan: Name: HUGO ANDERS Birthdate: 1985 [id number] Continued Medication Management: Continue Outpt Medication Medications: Current Medications Acetaminophen (Tylenol Tab*) 650 mg PO Q4H PRN PRN Reason: PAIN; OR TEMP >101 Al Hydrox/Mg Hydrox/Simethicone (Maalox Plus*) 30 ml PO Q4H PRN PRN Reason: INDIGESTION Albuterol (Ventolin Hfa Inhaler*) 2 puff INH Q2H PRN PRN Reason: SOB/WHEEZING Clozapine (Clozapine Tab*) 400 mg PO BEDTIME ROCÍO Last Admin: 07/24/19 22:12 Dose: 400 mg [place] Carbonate ([place] Carbonate Tab*) 300 mg PO BID ROCÍO Last Admin: 07/25/19 09:23 Dose: 300 mg Miscellaneous (Ativan Pyxis Reyes) 1 ea N/A .ATIVAN IV REYES PRN PRN Reason: PYXIS REYES Multivitamins/Minerals (Theragran/Minerals Tab*) 1 tab PO DAILY ROCÍO Last Admin: 07/25/19 09:25 Dose: Not Given Nicotine Polacrilex (Nicotine Gum*) 2 mg PO Q2H PRN PRN Reason: CRAVING Last Admin: 07/24/19 20:15 Dose: 2 mg - Discharge Plan Discharge Plan: Outpatient Follow Up Outpatient Program: [facility]
[2019-07-25] MEDS: Nicotine* 2MG (FRUIT FLAVOR) GUM PO PRN (19:51)
[2019-07-25] MEDS: CloZAPine TAB* 100 MG TAB PO SCH (23:06)
[2019-07-26] MEDS: Nicotine* 2MG (FRUIT FLAVOR) GUM PO PRN ×4 (01:45→21:33)
[2019-07-26] MEDS: Lithium Carbonate TAB* 300 MG PO SCH ×2 (10:12→21:34)
[2019-07-26] MEDS: Multivitamins/Minerals TAB PO SCH (10:13)
[2019-07-26] MEDS: CloZAPine TAB* 100 MG TAB PO SCH (21:34)
[2019-07-27 08:51] VITALS: BP 137/78
[2019-07-27] MEDS: Lithium Carbonate TAB* 300 MG PO SCH ×2 (10:45→22:33)
[2019-07-27] MEDS: Multivitamins/Minerals TAB PO SCH (10:45)
[2019-07-27] MEDS: Nicotine* 2MG (FRUIT FLAVOR) GUM PO PRN ×2 (13:33→20:06)
--- NOTE | 2019-07-27 13:42 | PN ---
Subjective - Subjective Date of Service: 07/27/19 Service Type: [id number] Hosp care 15 min low complexity Subjective: Hugo states she feels better and wants to go home. She feels like being in the hospital has the same kind of real world issues as being at home and she'd rather be at home. We discuss that she had not a perfect weekend. She states she 'd rather be weepy at home and yet she states she understands that although she feels okay, we need to see a series of days where she is improved. Hugo states the lithium isn't causing any problems. She also indicates that she doesn't want to go to all the groups, as she has had them many times in the past. She does agree to give them a try, however. Objective - General Observations Appearance: Disheveled Appears Stated Age: Yes Stature: Overweight Posture: WNL Eye Contact: Intermittent Behavior/Activity: Slowed - Interaction Observations Attitude Towards Examiner: Cooperative, Confused Stated Mood: Dysphoric Affect: Flat Speech Pattern/Tone: Clear, Quiet Volume Thought Process: Coherent Perception: WNL Thought Content: WNL Thought Process: Lethality: Passive Wish Hallucination Type: Denies Delusion Type: Denies - Cognitive Function Orientation: A&O x 4 Level of Consciousness: Awake, Alert, Appropriate Cognition: Impaired Cognition, Impaired Ability to Abstract Estimated Intelligence: Normal Insight: Difficulty Acknowledging Presence of Psyciatric Problems Judgment Within Normal Limits: No Ability to Make Reasonable Decisions: Moderately Impaired - Medication Compliance Cooperative with Inpatient Medication Regimen: Yes - Group Participation Participates in Group Activities: Partial Assessment - Assessment Merits Inpatient Hospitalization: For Immediate Safety Inpatient DSM-V Dx: F25.0 Clinical Impression: Hugo is a 33-year-old white woman who comes to the hospital with complaints of rapid switching between balbir and depression and recent high stress. Plan - Plan Treatment Plan: Name: HUGO ANDERS Birthdate: 1985 [id number] Staff pass granted with consultation from several staff members. Continue with clozapine as she doesn't like Trileptal. Continued Medication Management: Different Medication Medications: 07/25/19 Acetaminophen (Tylenol Tab*) 650 mg PO Q4H PRN PRN Reason: PAIN; OR TEMP >101 Al Hydrox/Mg Hydrox/Simethicone (Maalox Plus*) 30 ml PO Q4H PRN PRN Reason: INDIGESTION Albuterol (Ventolin Hfa Inhaler*) 2 puff INH Q2H PRN PRN Reason: SOB/WHEEZING Clozapine (Clozapine Tab*) 400 mg PO BEDTIME ROCÍO Last Admin: 07/26/19 21:34 Dose: 400 mg [place] Carbonate ([place] Carbonate Tab*) 300 mg PO BID ROCÍO Last Admin: 07/27/19 10:45 Dose: 300 mg Miscellaneous (Ativan Pyxis Reyes) 1 ea N/A .ATIVAN IV REYES PRN PRN Reason: PYXIS REYES Multivitamins/Minerals (Theragran/Minerals Tab*) 1 tab PO DAILY ROCÍO Last Admin: 07/27/19 10:45 Dose: Not Given Nicotine Polacrilex (Nicotine Gum*) 2 mg PO Q2H PRN PRN Reason: CRAVING Last Admin: 07/27/19 13:33 Dose: 2 mg 07/27/19 [place] was started over the weekend. Hugo had a difficult Saturday and then a quieter Saturday. Today she agrees to stay a while longer to get a few days of stability in place. No medication changes are made today.
[2019-07-27] MEDS: CloZAPine TAB* 100 MG TAB PO SCH (22:32)
[2019-07-28] MEDS: Lithium Carbonate TAB* 300 MG PO SCH ×2 (09:01→22:25)
[2019-07-28] MEDS: Multivitamins/Minerals TAB PO SCH (09:02)
[2019-07-28] MEDS: Nicotine* 2MG (FRUIT FLAVOR) GUM PO PRN ×3 (09:02→22:26)
--- NOTE | 2019-07-28 14:50 | PN ---
Subjective - Subjective Date of Service: 07/28/19 Service Type: [id number] Hosp care 25 min moderate complexity Subjective: Talked with Hugo while we took laps around the unit slowly. Hugo is relaxed, but hopeful to leave the unit. She advocates for herself appropriately to have 30-minute checks and staff pass, which are awarded to her today. These privileges were given on Saturday, but her behavior Saturday caused the staff pass to be held. Hugo is no longer tearful and is able to control her emotions. Although it would be advantageous to Hugo's discharge to trust the last two days, Hugo does tend to decompensate over the course of a few days. Objective - General Observations Appearance: Disheveled Appears Stated Age: Yes Stature: Overweight Posture: WNL Eye Contact: Average Behavior/Activity: Slowed - Interaction Observations Attitude Towards Examiner: Cooperative, Anxious Stated Mood: Dysphoric Affect: Blunted Speech Pattern/Tone: Clear Thought Process: Coherent, Goal Directed Perception: WNL Thought Content: Preoccupation/Ruminations, Self-Deprecatory Hallucination Type: None, Denies Delusion Type: None, Denies - Cognitive Function Orientation: A&O x 4 Level of Consciousness: Awake, Alert, Appropriate Cognition: Impaired Cognition Estimated Intelligence: Normal Insight: Difficulty Acknowledging Presence of Psyciatric Problems Judgment Within Normal Limits: No Ability to Make Reasonable Decisions: Moderately Impaired - Medication Compliance Cooperative with Inpatient Medication Regimen: Yes - Group Participation Participates in Group Activities: Partial Assessment - Assessment Merits Inpatient Hospitalization: For Immediate Safety Inpatient DSM-V Dx: F25.0 Clinical Impression: Hugo is a 33-year-old white woman who comes to the hospital with complaints of rapid switching between balbir and depression and recent high stress. Plan - Plan Treatment Plan: Name: HUGO ANDERS Birthdate: 1985 [id number] Staff pass granted with consultation from several staff members. Continue with clozapine as she doesn't like Trileptal. 07/28/19 Staff pass reinitiated after weekend hold. Started lithium 300 mg BID. Lab draw to take place tomorrow morning before lithium administered. Continuing monitoring Hugo's mood as well as anxiety fluctuations. Plan for discharge in a few days, perhaps 07/30 or 07/31. Continued Medication Management: Different Medication Medications: Current Medications Acetaminophen (Tylenol Tab*) 650 mg PO Q4H PRN PRN Reason: PAIN; OR TEMP >101 Al Hydrox/Mg Hydrox/Simethicone (Maalox Plus*) 30 ml PO Q4H PRN PRN Reason: INDIGESTION Albuterol (Ventolin Hfa Inhaler*) 2 puff INH Q2H PRN PRN Reason: SOB/WHEEZING Clozapine (Clozapine Tab*) 400 mg PO BEDTIME [facility] Last Admin: 07/27/19 22:32 Dose: 400 mg [place] Carbonate ([place] Carbonate Tab*) 300 mg PO BID [facility] Last Admin: 07/28/19 09:01 Dose: 300 mg Miscellaneous (Ativan Pyxis Reyes) 1 ea N/A .ATIVAN IV REYES PRN PRN Reason: PYXIS REYES Multivitamins/Minerals (Theragran/Minerals Tab*) 1 tab PO DAILY [facility] Last Admin: 07/28/19 09:02 Dose: Not Given Nicotine Polacrilex (Nicotine Gum*) 2 mg PO Q2H PRN PRN Reason: CRAVING Last Admin: 07/28/19 13:52 Dose: 2 mg - Discharge Plan Discharge Plan: Outpatient Follow Up Outpatient Program: [facility]
[2019-07-28] MEDS: CloZAPine TAB* 100 MG TAB PO SCH (22:24)
[2019-07-29 08:20] LABS: Clozapine 272 ng/mL (>350); Clozapine & Norclozapine Level 485 ng/mL (>450); Norclozapine 213 ng/mL
[2019-07-29] MEDS ORDERED: Lithium Carbonate TAB* 300 MG PO SCH ×2 (09:00→21:00)
[2019-07-29] MEDS: Multivitamins/Minerals TAB PO SCH (09:27)
[2019-07-29] MEDS: Nicotine* 2MG (FRUIT FLAVOR) GUM PO PRN (09:29)
--- NOTE | 2019-07-29 16:52 | PN ---
Subjective - Subjective Date of Service: 07/29/19 Service Type: [id number] Hosp care 15 min low complexity Subjective: Niya has had Saturday through Saturday as good days with no emotional outbursts or unmanageable upsets. This string of days is reassuring as is her ability to tolerate lithium. The results of her lithium level were 0.39, so an increase is in order. In Niya's case, additional monitoring is not necessary and discharge will be appropriate for tomorrow 07/30/19. Objective - General Observations Appearance: Disheveled Appears Stated Age: Yes Stature: Overweight Posture: WNL Eye Contact: Average Behavior/Activity: WNL - Interaction Observations Attitude Towards Examiner: Cooperative Stated Mood: Dysphoric, Anxious Affect: Full Speech Pattern/Tone: Clear, Loud Volume Thought Process: Coherent, Goal Directed Perception: WNL Thought Content: WNL Hallucination Type: None Delusion Type: Denies - Cognitive Function Orientation: A&O x 4 Level of Consciousness: Awake, Alert, Appropriate Cognition: WNL Estimated Intelligence: Normal Insight: WNL Judgment Within Normal Limits: Yes - Medication Compliance Cooperative with Inpatient Medication Regimen: Yes - Group Participation Participates in Group Activities: Partial Assessment - Assessment Merits Inpatient Hospitalization: For Immediate Safety Inpatient DSM-V Dx: F25.0 Clinical Impression: Niya is a 33-year-old white woman who comes to the hospital with complaints of rapid switching between balbir and depression and recent high stress. Currently, she has had a string of four days without unmanageable emotions. Plan - Plan Treatment Plan: Name: NIYA ANDERS Birthdate: 1985 [id number] Staff pass granted with consultation from several staff members. Continue with clozapine as she doesn't like Trileptal. 07/28/19 Staff pass reinitiated after weekend hold. Started lithium 300 mg BID. Lab draw to take place tomorrow morning before lithium administered. Continuing monitoring Niya's mood as well as anxiety fluctuations. Plan for discharge in a few days, perhaps 07/30 or 07/31. 07/29/19 Increase lithium to 900 mg and use extended release version so that Niya is more likely to take medications, which she does fairly reliably at bedtime. Continued Medication Management: Different Medication Medications: Current Medications Acetaminophen (Tylenol Tab*) 650 mg PO Q4H PRN PRN Reason: PAIN; OR TEMP >101 Al Hydrox/Mg Hydrox/Simethicone (Maalox Plus*) 30 ml PO Q4H PRN PRN Reason: INDIGESTION Albuterol (Ventolin Hfa Inhaler*) 2 puff INH Q2H PRN PRN Reason: SOB/WHEEZING Clozapine (Clozapine Tab*) 400 mg PO BEDTIME ROCÍO Last Admin: 07/28/19 22:24 Dose: 400 mg [place] Carbonate ([place] Carbonate Er Tab*) 900 mg PO BEDTIME ROCÍO Miscellaneous (Ativan Pyxis Reyes) 1 ea N/A .ATIVAN IV REYES PRN PRN Reason: PYXIS REYES Multivitamins/Minerals (Theragran/Minerals Tab*) 1 tab PO DAILY ROCÍO Last Admin: 07/29/19 09:27 Dose: Not Given Nicotine Polacrilex (Nicotine Gum*) 2 mg PO Q2H PRN PRN Reason: CRAVING Last Admin: 07/29/19 09:29 Dose: 2 mg - Discharge Plan Discharge Plan: Outpatient Follow Up Outpatient Program: [facility]
[2019-07-29] MEDS ORDERED: Lithium Carbonate ER* 450 MG TAB.ER PO SCH (21:00)
[2019-07-29] MEDS: CloZAPine TAB* 100 MG TAB PO SCH (22:08)
[2019-07-30] MEDS: Nicotine* 2MG (FRUIT FLAVOR) GUM PO PRN (09:31)
[2019-07-30] MEDS: Multivitamins/Minerals TAB PO SCH (09:33)
--- NOTE | 2019-08-06 14:01 | DS ---
DISCHARGE SUMMARY: DATE OF ADMISSION: 07/23/19 DATE OF DISCHARGE: 07/30/19 PROVIDER: Carrie Bhandari NP, in Psychiatry. SUPERVISING PHYSICIAN: Dr. Peter Hayden.* (DICTATED BY CARRIE BHANDARI NP ) DIAGNOSIS: Schizoaffective disorder, bipolar type, current episode manic with psychotic features. CONDITION AT THE TIME OF DISCHARGE: Improved, psychiatrically cleared, stable. Niya participated in groups and was social with peers. Her father is agreeable to her discharge as is Niya. She has done well here psychiatrically. She tolerated the addition of lithium. She will be attending [facility]. MENTAL STATUS EXAMINATION: At the time of discharge, Niya is calm, cooperative , and makes good eye contact. She is alert and oriented x4. Her grooming is adequate. Her speech pace is normal or slightly pressured. Thought processes are logical. She is not psychotic or delusional. She denies AH, VH, SI, and HI. Insight and judgment are fair to good. She is willing to follow up and she is urged to see a therapist. DISCHARGE INSTRUCTIONS TO THE PATIENT: A. Medications: 1. Albuterol inhaler 2 puffs q.2 hours p.r.n. shortness of breath and wheezing. 2. Clozapine 400 mg at bedtime. 3. St. Florian carbonate ER 900 mg at bedtime. B. Diet is regular. C. Activities: As tolerated. Niya is a smoker, but she has declined a referral to the [place] [employer]uit[employer] at this time. If she decides to access this free service in the future, she can contact the quitline toll- free at . There are no studies pending at the time of discharge. D. Followup care: She is referred to [facility]. She has a followup on 07/30/19 at 2:30 with Jessica Perez. She has also been referred to her primary care provider, Dr. Yanet Jimenez, and to make an appointment within 1 month. E. Disposition: Niya is being discharged home with her father, although she has made it clear that she would like to relatively soon move out of her father' s home. F. Substance abuse followup is not indicated. HOSPITAL COURSE: Part A: Chief complaint: "You can see inside my head." The patient is a 33-year-old single white female with a history of schizoaffective disorder, who arrives, brought in by ambulance following her father contacting EMS due to her racing thoughts and cycling between balbir and depression. Today, Niya had to withdraw from college courses at 3. She is upset. She cannot adequately explain what is happening to her when I am talking to her alongside Mariposa Rivera LMSW. She has racing thoughts. She states that they are "all over the place" and she says since she left here things have been going poorly. She was discharged earlier this month on 07/09/19. She states that nothing helps make her feel better. She does not sleep well. She does not want to be here. When asked where she wants to be, she says "home is where the heart is." She does begin to have trouble expressing herself and begins signing the words "you see inside my head" among other phrases that are difficult to interpret. It appears that the stressors for Niya include having to withdraw from college as well as the stressors of college itself. 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 She wanted to talk to her boss, Zack, who is a manager fast food here in the hospital apparently. She has disorganized thoughts. She is tearful, unable to stop crying during the interview. She is confused, choosing to be mute at times and is distractible. She rocks herself forward and back with her legs crossed under herself on the bed. Part B: Psychiatric treatment was rendered. Niya was admitted to the adult behavioral unit and placed on 15-minute checks for safety. She did advance to 30- minute checks and staff pass privileges. She eventually did well on the unit. Initially, she stated that she wanted to continue with clozapine and she did not like Trileptal. On 07/28/19, staff pass was reinitiated after a weekend hold due to her crying and sobbing and not being able to maintain control of herself. We started lithium 300 mg b.i.d. A lab draw was scheduled to take place before lithium was administered on 07/29/19. We continued monitoring Niya's mood as well as her anxiety fluctuations. There is a plan for discharge in a few days, perhaps 07/30/19 or 07/31/19. On 07/29/19, we increased lithium to 900 mg and used extended release lithium so that Niya will be more likely to take the medication, which she does fairly regularly at bedtime rather than less regularly in the morning. On 07/29/19, her lithium level was 0.39, which is of course low, thus the increase to 900. She was not here long enough for us to obtain a second lithium level. She is taking clozapine. It should be noted that her hemoglobin A1c is 5.7. Triglycerides are 142, cholesterol is 168, LDL cholesterol is 106, HDL cholesterol is 33.7. Her TSH is 3.51. No consults were entered for Niya, but she was able to express her needs, stating the Trileptal which she received at her last hospitalization, made her feel strange and unhappy and so she did not want to continue that. She was willing to try lithium, which has likely been tried in the past, but she was willing to try it again. It is clear that she has been having mood swings in addition to the psychosis that has been bothering her for years. The clozapine seems to have worked to stabilize her mood. For the last 4 years, she has been on it alone, but she improved here only with the addition of a mood stabilizer. Her improvements included being able to speak, being less anxious, being less frightened, behaving less impulsively and strangely, and appearing to become happy and jubilant which was most clearly expressed when she found out she was going to be leaving. Niya is future oriented and is eager for discharge, stating "hallelujah" when she found out she would be discharged. She appears to be future oriented and is happy. She denies suicidality, homicidality, AH, VH, delusions, and psychosis. She is future oriented. CARRIE BHANDARI, MON[place] [id number]/[facility] #: [id number] [place]
== END 2019-07-30 13:23 | disposition home or self-care (01) | DRG 885 ==
LOC: ED 19:38 → BSU 07-23 05:08
PROVIDERS: ADMIT Psychiatry & Neurology Psychiatry; ATTEND Psychiatry & Neurology Psychiatry
DX: F25.0 Schizoaffective disorder, bipolar type (principal); Z68.43 Body mass index [BMI] 50.0-59.9, adult; E78.00 Pure hypercholesterolemia, unspecified; I10 Essential (primary) hypertension; J45.909 Unspecified asthma, uncomplicated; F17.210 Nicotine dependence, cigarettes, uncomplicated; F60.3 Borderline personality disorder; E03.9 Hypothyroidism, unspecified; E66.9 Obesity, unspecified; F41.9 Anxiety disorder, unspecified; Z91.5 Personal history of self-harm; Z88.2 Allergy status to sulfonamides; Z85.89 Personal history of malignant neoplasm of other organs and systems
CPT/HCPCS: 36415; 80053; 80061; 80159; 80178; 80307; 80320; 80329; 81003; 83036; 84443; 84702; 85025; 99222; 99231; 99232; 99238; 99284; A9270-GY; G0480

== ENCOUNTER 2019-08-07 08:29 | Emergency (ER) | payer MEDICARE, MEDICAID ==
[2019-08-07] MEDS ORDERED: NS 0.9% 1000 ML** 1,000 ML IV ONE (08:38)
--- NOTE | 2019-08-07 08:40 | ED ---
Dizziness - HPI Summary HPI Summary: Patient is a 34 y/o F presenting to [facility] via EMS with chief complaint of dizziness. In the room, she states that she is unsure of how long she has had the dizziness for. Patient notes that she had a SON last night but "slept it off ". She denies vision changes, cough, SOB, CP, N/V and abdominal pain. She denies Hx of cardiac disease, diabetes, and HTN. She claims that she had Head MRI a few years ago. 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 Patient brought a piece of paper with her that read as follows: "Things to talk to Doctor about 1) When I stand up I feel dizzy 2) Starting to forget things 3) Keep falling 4) Afraid to leave house 5) Afraid to take shower 6) Have a hard time doing daily activities 7) Had a legion on brain" - History Of Current Complaint Stated Complaint: DIZZINESS PER EMS Time Seen by Provider: 08/07/19 08:31 Hx Obtained From: Patient Onset/Duration: Still Present Character: Dizzy Aggravating Factor(s): Nothing Alleviating Factor(s): Nothing Associated Signs And Symptoms: Positive: Other: - negative - abdominal pain; positive - SON, as per patient's note: 1)When I stand up I feel dizzy 2)Starting to forget things 3)Keep falling 4)Afraid to leave house 5)Afraid to take shower 6)Have a hard time doing daily activities 7)Had a legion on brain. Negative: Nausea, Vomiting, Chest Pain, SOB, Visual Changes - Allergies/Home Medications Allergies/Adverse Reactions: Allergies Allergy/AdvReac Type Severity Reaction Status Date / Time Sulfa (Sulfonamide Allergy Unknown Unknown Verified 08/07/19 08:39 Antibiotics) Reaction Details PMH/Surg Hx/FS Hx/Imm Hx Endocrine/Hematology History: Reports: Hx Thyroid Disease Cardiovascular History: Reports: Hx Hypercholesterolemia, Hx Hypertension Denies: Hx Pacemaker/ICD Respiratory History: Reports: Hx Asthma History: Denies: Hx Dialysis Sensory History: Reports: Hx Contacts or Glasses, Hx Vision Problem Denies: Hx Deafness, Hx Hearing Aid Opthamlomology History: Reports: Hx Contacts or Glasses, Hx Vision Problem Psychiatric History: Reports: Hx Anxiety, Hx Depression, Hx Inpatient Treatment , Hx Community Mental Health Tx, Hx Schizophrenia, Hx Bipolar Disorder, Hx Suicide Attempt - Hx OD x 2, Hx of Violent Episodes Against Others Denies: Hx Attention Deficit Hyperactivity Disorder, Hx Eating Disorder, Hx Panic Disorder, Hx Post Traumatic Stress Disorder, Hx Substance Abuse, Other Psychiatric Issues/Disorders - Cancer History Cancer Type, 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 - Family History Known Family History: Positive: Other - FMHx of bipolar disorder - Social History Alcohol Use: None Substance Use Type: Reports: None Smoking Status (MU): Current Every Day Smoker Type: Cigarettes Amount Used/How Often: 1-11/2 packs per day Review of Systems Eyes: Other - negative - visual changes Negative: Chest Pain Negative: Shortness Of Breath, Cough Negative: Abdominal Pain, Vomiting, Nausea Neurological: Other - positive - dizziness; as per patient note, forgetting things, falls, afraid to leave house and shower, hard time with daily activites Positive: Headache - since resolved All Other Systems Reviewed And Are Negative: Yes Physical Exam - Summary Physical Exam Summary: Constitutional: Well-developed, Well-nourished, Alert. (-) Distressed Skin: Warm, Dry HENT: Normocephalic; Atraumatic Eyes: Conjunctiva normal, PERRLA, EOMI, no nystagmus Neck: Musculoskeletal ROM normal neck. (-) JVD, (-) Stridor, (-) Tracheal deviation Cardio: Rhythm regular, rate normal, Heart sounds normal; Intact distal pulses; The pedal pulses are 2+ and symmetric. Radial pulses are 2+ and symmetric. (-) Murmur Pulmonary/Chest wall: Effort normal. (-) Respiratory distress, (-) Wheezes, (-) Rales Abd: Soft, (-) tenderness, (-) Distension, (-) Guarding, (-) Rebound Musculoskeletal: (-) Edema Lymph: (-) Cervical adenopathy Neuro: Alert, Oriented x3, moving all extremities, normal finger to nose testing , no neuro deficits, GCS 15. Psych: Flat affect Triage Information Reviewed: Yes Vital Signs On Initial Exam: Initial Vitals Temp Pulse Resp BP Pulse Ox 98.9 F 88 16 114/84 96 08/07/19 08:37 08/07/19 08:37 08/07/19 08:37 08/07/19 08:37 08/07/19 08:37 Vital Signs Reviewed: Yes - Diya Coma Scale Best Eye Response: 4 - Spontaneous Best Motor Response: 6 - Obeys Commands Best Verbal Response: 5 - Oriented Coma Scale Total: 15 Procedures - Sedation Patient Received Moderate/Deep Sedation with Procedure: No Diagnostics - Laboratory Result Diagrams: 08/07/19 08:52 08/07/19 08:52 Lab Statement: Any lab studies that have been ordered have been reviewed, and results considered in the medical decision making process. - CT BRAIN CT CT Interpretation Completed By: Radiologist Summary of CT Findings: IMPRESSION: No intracranial mass or hemorrhage is noted. THIS REPORT WAS REVIEWED BY DR. PICKENS. - EKG 0844 Cardiac Rate: NL - rate of 87 BPM EKG Rhythm: Sinus Rhythm ST Segment: Normal Ectopy: None Summary of EKG Findings: EKG showed NSR with rate of 87 BPM, normal ST segment, no ectopy, borderline T wave abnormalities. This EKG was reviewed and interpreted by Dr. Pickens. Dizzy Course/Dx - Course Course Of Treatment: Patient is a 34 y/o F presenting to [facility] via EMS with chief complaint of dizziness. Patient notes that she had a SON last night but "slept it off". She denies vision changes, cough, SOB, CP, N/V and abdominal pain. Patient brought a piece of paper with her that read as follows: "Things to talk to Doctor about. 1)When I stand up I feel dizzy. 2)Starting to forget things. 3)Keep falling. 4)Afraid to leave house. 5)Afraid to take shower. 6) Have a hard time doing daily activities. 7)Had a legion on brain". Eyes: Conjunctiva normal, PERRLA, EOMI, no nystagmus. Neuro: Alert, Oriented x3, moving all extremities, normal finger to nose testing, no neuro deficits, GCS 15. EKG showed NSR with rate of 87 BPM, normal ST segment, no ectopy, borderline T wave abnormalities. BRAIN CT IMPRESSION: No intracranial mass or hemorrhage is noted. Bloodwork obtained and within normal limits with exception of glucose of 104 and AST 12. TSH was 2.61, Beta HCG was negative, Serum alcohol was negative. Patient received 1 L NS. She was discharged to home and advised to follow up with PCP within three days. - Diagnoses Provider Diagnoses: Dizziness Discharge ED - Sign-Out/Discharge Documenting (check all that apply): Patient Departure - discharge - Discharge Plan Condition: Stable Disposition: HOME Patient Education Materials: Dizziness (ED) Referrals: Yanet Jimenez MD [Primary Care Provider] - 3 Days Additional Instructions: PLEASE RETURN TO ED FOR ANY NEW OR WORSENING SYMPTOMS. FOLLOW UP WITH YOUR PRIMARY CARE PHYSICIAN WITHIN 2-3 DAYS. - Billing Disposition and Condition Condition: STABLE Disposition: Home - Attestation Statements Document Initiated by Jon: Yes Documenting Scribe: HARPAL SHEPARD Provider For Whom Jon is Documenting (Include Credential): BENITA PICKENS DO Scribe Attestation: HARPAL East, scribed for BENITA PICKENS DO on 08/07/19 at 1243. Scribe Documentation Reviewed: Yes Provider Attestation: The documentation as recorded by the HARPAL klein accurately reflects the service I personally performed and the decisions made by me, BENITA PICKENS DO Status of Scribe Document: Viewed
[2019-08-07 08:59] LABS: ABS Lymphocytes 2.1 10^3/ul (1.0-4.8); ABS Monocytes 0.5 10^3/ul (0-0.8); ABS Neutrophils 6.2 10^3/ul (1.5-7.7); Hematocrit 39 % (35-47); Hemoglobin 13.2 g/dL (12.0-16.0); Lymphocyte % 23.4 %; Mean Corpuscular HGB Conc 34 g/dL (31-36); Mean Corpuscular Hemoglobin 29 pg (27-31); Mean Corpuscular Volume 86 fL (80-97); Mean Platelet Volume 7.9 fL (7.4-10.4); Platelet Count 255 10^3/uL (150-450); Red Blood Count 4.56 10^6 /uL (3.70-4.87); Red Cell Distribution Width 14 % (10-15); White Blood Count 8.8 10^3/uL (3.5-10.8)
[2019-08-07 09:20] LABS: ALT 16 U/L (7-52); AST 12 U/L (13-39); Albumin 3.9 g/dL (3.2-5.2); Albumin/Globulin Ratio 1.5 (1-3); Alkaline Phosphatase 82 U/L (34-104); Anion Gap 6 mmol/L (2-11); BUN/Creatinine Ratio 14.3 (8-20); Blood Urea Nitrogen 8 mg/dL (6-24); CO2 Carbon Dioxide 26 mmol/L (22-32); Calcium 9.1 mg/dL (8.6-10.3); Chloride 109 mmol/L (101-111); EGFR African American 149.1 (>60); EGFR Non-African American 123.2 (>60); Globulin 2.6 g/dL (2-4); Glucose 104 mg/dL (70-100); Potassium 3.8 mmol/L (3.5-5.0); Sodium 141 mmol/L (135-145); Total Protein 6.5 g/dL (6.4-8.9)
[2019-08-07 09:23] LABS: HCG Pregnancy < 0.60 mIU/mL
[2019-08-07 09:45] LABS: Alcohol < 10 mg/dL (<10)
[2019-08-07 09:55] LABS: Urine Benzodiazepine Screen None Detected (None Detect); Urine Opiates Screen None Detected (None Detect)
[2019-08-07 10:01] LABS: TSH (Thyroid Stimulating Horm) 2.61 mcIU/mL (0.34-5.60)
[2019-08-07 11:11] LABS: Lithium 0.16 mmol/L (0.6-1.2)
[2019-08-07 11:31] VITALS: BP 109/79
== END 2019-08-07 11:25 | disposition home or self-care (01) ==
LOC: ED 08:29
DX: R42 Dizziness and giddiness (principal); E07.9 Disorder of thyroid, unspecified; E78.00 Pure hypercholesterolemia, unspecified; I10 Essential (primary) hypertension; J45.909 Unspecified asthma, uncomplicated; F41.9 Anxiety disorder, unspecified; F20.9 Schizophrenia, unspecified; F31.9 Bipolar disorder, unspecified; F17.210 Nicotine dependence, cigarettes, uncomplicated; Z88.2 Allergy status to sulfonamides; Z79.899 Other long term (current) drug therapy
CPT/HCPCS: 36415; 70450; 80053; 80178; 80307; 80320; 84443; 84702; 85025; 93005; 96360; 96361; 99283; G0480

== ENCOUNTER 2019-08-09 18:30 | Emergency (ER) | payer MEDICARE, MEDICAID ==
--- NOTE | 2019-08-09 18:58 | ED ---
Dizziness - HPI Summary HPI Summary: Patient complains of lightheadedness, trouble keeping balance, malaise after starting lithium 07/30/19. Recent admission to [facility] [place] psychiatric unit for manic episode. Started on lithium at that time. Denies fever, cough, sore throat, CP , SOB, N/V/V abdominal pain, change in urine, change in BM. - History Of Current Complaint Chief Complaint: EDGeneral Stated Complaint: GENERAL ILLNESS Time Seen by Provider: 08/09/19 18:39 Hx Obtained From: Patient Onset/Duration: Still Present Timing: Constant Severity Initially: Moderate Severity Currently: Moderate Character: Lightheaded, Dizzy Aggravating Factor(s): Exertion Alleviating Factor(s): Lying Down Associated Signs And Symptoms: Positive: Unsteady Gait - Allergies/Home Medications Allergies/Adverse Reactions: Allergies Allergy/AdvReac Type Severity Reaction Status Date / Time Sulfa (Sulfonamide Allergy Unknown Unknown Verified 08/07/19 08:39 Antibiotics) Reaction Details PMH/Surg Hx/FS Hx/Imm Hx Endocrine/Hematology History: Reports: Hx Thyroid Disease Cardiovascular History: Reports: Hx Hypercholesterolemia, Hx Hypertension Denies: Hx Pacemaker/ICD Respiratory History: Reports: Hx Asthma History: Denies: Hx Dialysis Sensory History: Reports: Hx Contacts or Glasses, Hx Vision Problem Denies: Hx Deafness, Hx Hearing Aid Opthamlomology History: Reports: Hx Contacts or Glasses, Hx Vision Problem Neurological History: Denies: Hx Dementia Psychiatric History: Reports: Hx Anxiety, Hx Depression, Hx Inpatient Treatment , Hx Community Mental Health Tx, Hx Schizophrenia, Hx Bipolar Disorder, Hx Suicide Attempt - Hx OD x 2, Hx of Violent Episodes Against Others Denies: Hx Attention Deficit Hyperactivity Disorder, Hx Eating Disorder, Hx Panic Disorder, Hx Post Traumatic Stress Disorder, Hx Substance Abuse, Other Psychiatric Issues/Disorders - Cancer History Cancer Type, 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 Infectious Disease History: No Infectious Disease History: Denies: Traveled Outside the [place] in Last 30 Days - Family History Known Family History: Positive: Other - FMHx of bipolar disorder, Non- Contributory - Social History Alcohol Use: None Substance Use Type: Reports: None Smoking Status (MU): Current Every Day Smoker Type: Cigarettes Amount Used/How Often: 1-11/2 packs per day Review of Systems Constitutional: Negative Eyes: Negative ENT: Negative Cardiovascular: Negative Respiratory: Negative Gastrointestinal: Negative Skin: Negative Neurological: Negative Psychological: Normal All Other Systems Reviewed And Are Negative: Yes Physical Exam Triage Information Reviewed: Yes Vital Signs On Initial Exam: Initial Vitals Temp Pulse Resp BP Pulse Ox 97.7 F 73 18 115/75 95 08/09/19 18:34 08/09/19 18:34 08/09/19 18:34 08/09/19 18:34 08/09/19 18:34 Vital Signs Reviewed: Yes Appearance: Positive: Well-Appearing Skin: Positive: Warm Head/Face: Positive: Normal Head/Face Inspection Eyes: Positive: Normal Neck: Positive: Supple Respiratory/Lung Sounds: Positive: Clear to Auscultation Cardiovascular: Positive: Normal Abdomen Description: Positive: Nontender Pelvic Exam: Positive: External Exam Normal Musculoskeletal: Positive: Normal Neurological: Positive: Normal Psychiatric: Positive: Affect/Mood Appropriate AVPU Assessment: Alert - Diya Coma Scale Best Eye Response: 4 - Spontaneous Best Motor Response: 6 - Obeys Commands Best Verbal Response: 5 - Oriented Coma Scale Total: 15 Procedures - Sedation Patient Received Moderate/Deep Sedation with Procedure: No Diagnostics - Vital Signs Vital Signs Temp Pulse Resp BP Pulse Ox 08/09/19 18:34 97.7 F 73 18 115/75 95 - Laboratory Result Diagrams: 08/09/19 18:54 08/09/19 18:54 Lab Statement: Any lab studies that have been ordered have been reviewed, and results considered in the medical decision making process. Dizzy Course/Dx - Course Course Of Treatment: Patient complains of lightheadedness, malaise, imbalance 1 week. History of starting lithium 10 days ago. Recent admission to [facility] [place] via psych unit, where she was started on lithium for bipolar syndrome. Denies cough , sore throat, CP, SOB, N/C/D, abdominal pain, change in urinary or change in BM. Vital signs within normal limits. Labs unremarkable. EKG sinus rhythm symptoms likely related to starting lithium. [place] discontinued. Follow-up with primary care for further management. - Diagnoses Provider Diagnoses: Dizziness, Medication reaction Discharge ED - Sign-Out/Discharge Documenting (check all that apply): Patient Departure - Discharge Plan Condition: Stable Disposition: HOME Patient Education Materials: [place] (By mouth), Dizziness (ED) Referrals: Yanet Jimenez MD [Primary Care Provider] - Additional Instructions: Stop taking lithium. Follow-up with your mental health and primary care providers to find substitute medication. - Billing Disposition and Condition Condition: STABLE Disposition: Home
[2019-08-09 19:01] LABS: ABS Lymphocytes 2.6 10^3/ul (1.0-4.8); ABS Monocytes 0.7 10^3/ul (0-0.8); ABS Neutrophils 6.9 10^3/ul (1.5-7.7); Hematocrit 41 % (35-47); Lymphocyte % 25.5 %; Mean Corpuscular HGB Conc 34 g/dL (31-36); Mean Corpuscular Hemoglobin 29 pg (27-31); Mean Corpuscular Volume 85 fL (80-97); Mean Platelet Volume 7.9 fL (7.4-10.4); Platelet Count 310 10^3/uL (150-450); Red Blood Count 4.86 10^6 /uL (3.70-4.87); Red Cell Distribution Width 14 % (10-15); White Blood Count 10.2 10^3/uL (3.5-10.8)
[2019-08-09 19:17] LABS: Lithium 0.34 mmol/L (0.6-1.2)
[2019-08-09 19:18] LABS: Albumin 4.1 g/dL (3.2-5.2); Albumin/Globulin Ratio 1.6 (1-3); BUN/Creatinine Ratio 16.7 (8-20); Calcium 9.4 mg/dL (8.6-10.3); EGFR African American 137.7 (>60); EGFR Non-African American 113.8 (>60); Globulin 2.6 g/dL (2-4); Potassium 3.1 mmol/L (3.5-5.0); Total Bilirubin 0.8 mg/dL (0.2-1.0); Total Protein 6.7 g/dL (6.4-8.9)
[2019-08-09] MEDS ORDERED: Potassium Chlor TAB* 20 MEQ TAB.ER PO ONE (20:13)
[2019-08-09 21:22] VITALS: BP 114/80
== END 2019-08-09 21:21 | disposition home or self-care (01) ==
LOC: ED 18:30
DX: T43.595A Adverse effect of other antipsychotics and neuroleptics, initial encounter (principal); Y92.9 Unspecified place or not applicable; R42 Dizziness and giddiness; E78.00 Pure hypercholesterolemia, unspecified; I10 Essential (primary) hypertension; E07.9 Disorder of thyroid, unspecified; J45.909 Unspecified asthma, uncomplicated; Z88.2 Allergy status to sulfonamides; F17.210 Nicotine dependence, cigarettes, uncomplicated; Z79.899 Other long term (current) drug therapy; F31.9 Bipolar disorder, unspecified
CPT/HCPCS: 36415; 80053; 80178; 85025; 99283; A9270-GY

== ENCOUNTER 2019-08-11 17:52 | Inpatient (IN) | payer MEDICARE, MEDICAID ==
--- NOTE | 2019-08-11 19:18 | ED ---
Psychiatric Complaint - HPI Summary HPI Summary: Pt is a 34 y/o F presenting to the ED for a psychiatric complaint. Pt is on a 941 brought in by state police. Pt has been seen [place] [facility] [place] times in the past. Pt states police came to her house who escorted her out of her house in handcuffs. Pt states she told police that she is concerned she will arrested for molesting children. Pt states she has no desire to molest children. Pt reports she has SI and has a plan to induce a heart attack by overdosing on pills. Pt states she just wants to sleep. Pt states she wishes to cry, but she has no tears left. Pt also reports that she has hallucinations, occasional confusion, anxiety, and fatigue. Pt denies any other illness. Pt states she had a brain MRI preformed in the past that showed a brain lesion. Pt states she is concerned she will be sued for services she has received at the ED and will be homeless. - History Of Current Complaint Chief Complaint: EDMentalHealth Time Seen by Provider: 08/11/19 19:06 Hx Obtained From: Patient Onset/Duration: Still Present Timing: Constant Severity Initially: Moderate Severity Currently: Moderate Aggravating Factor(s): Nothing Alleviating Factor(s): Nothing Associated Signs And Symptoms: Positive: Hallucinating Has Suicidal: Reports: Thoughts, With A Plan - Overdose on pills - Allergies/Home Medications Allergies/Adverse Reactions: Allergies Allergy/AdvReac Type Severity Reaction Status Date / Time Sulfa (Sulfonamide Allergy Unknown Unknown Verified 08/11/19 18:11 Antibiotics) Reaction Details PMH/Surg Hx/FS Hx/Imm Hx Previously Healthy: Yes Endocrine/Hematology History: Reports: Hx Thyroid Disease Cardiovascular History: Reports: Hx Hypercholesterolemia, Hx Hypertension Denies: Hx Pacemaker/ICD Respiratory History: Reports: Hx Asthma History: Denies: Hx Dialysis Sensory History: Reports: Hx Contacts or Glasses, Hx Vision Problem Denies: Hx Deafness, Hx Hearing Aid Opthamlomology History: Reports: Hx Contacts or Glasses, Hx Vision Problem Neurological History: Denies: Hx Dementia Psychiatric History: Reports: Hx Anxiety, Hx Depression, Hx Inpatient Treatment , Hx Community Mental Health Tx, Hx Schizophrenia, Hx Bipolar Disorder, Hx Suicide Attempt - Hx OD x 2, Hx of Violent Episodes Against Others Denies: Hx Attention Deficit Hyperactivity Disorder, Hx Eating Disorder, Hx Panic Disorder, Hx Post Traumatic Stress Disorder, Hx Substance Abuse, Other Psychiatric Issues/Disorders - Cancer History Cancer Type, 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 - Surgical History Surgical History: None Surgery Procedure, Year, and Place: None - Immunization History Date of Tetanus Vaccine: unk Date of Influenza Vaccine: none Infectious Disease History: No Infectious Disease History: Denies: Traveled Outside the [place] in Last 30 Days - Family History Known Family History: Positive: Other - FMHx of bipolar disorder - Social History Alcohol Use: None Hx Substance Use: No Substance Use Type: Reports: None Hx Tobacco Use: Yes Smoking Status (MU): Current Every Day Smoker Type: Cigarettes Amount Used/How Often: 1-11/2 packs per day Review of Systems Positive: Fatigue Neurological: Other - Positive occasional confusion Positive: Anxious, Other - Positive SI with a plan, hallucinations All Other Systems Reviewed And Are Negative: Yes Physical Exam - Summary Physical Exam Summary: Appearance: Well-appearing, Well-nourished, lying in bed comfortable Skin: Warm, dry, no obvious rash Eyes: sclera anicteric, no conjunctival pallor ENT: mucous membranes moist Neck: deferred Respiratory: No signs of respiratory distress Cardiovascular: Appears well perfused, pulses are nml Abdomen: deferred Musculoskeletal: Moving all 4 extremities without obvious discomfort Neurological: Awake and alert, mentation is normal, speech is fluent and appropriate Psychiatric: affect is normal, does not appear anxious or depressed Triage Information Reviewed: Yes Vital Signs On Initial Exam: Initial Vitals Temp Pulse Resp BP Pulse Ox 98.1 F 99 19 160/116 98 08/11/19 17:54 08/11/19 17:54 08/11/19 17:54 08/11/19 17:54 08/11/19 17:54 Vital Signs Reviewed: Yes Procedures - Sedation Patient Received Moderate/Deep Sedation with Procedure: No Diagnostics - Vital Signs Vital Signs Temp Pulse Resp BP Pulse Ox 08/11/19 17:54 98.1 F 99 19 160/116 98 - Laboratory Lab Statement: Any lab studies that have been ordered have been reviewed, and results considered in the medical decision making process. Course/Dx - Course Course Of Treatment: Pt is a 34 y/o F presenting to the ED for a psychiatric complaint. Pt is on a 941 brought in by state police. Pt has been seen at [facility] [place] times in the past. Pt states she told police that she is concerned she will arrested for molesting children. Pt states she has no desire to molest children. Pt reports she has SI and has a plan to induce a heart attack by overdosing on pills. Pt also reports that she has hallucinations, occasional confusion, anxiety, and fatigue. Pt denies any other illness. Pt states she had a brain MRI preformed in the past that showed a brain lesion. On exam, pt has unremarkable findings. At 19:16, pt is medically cleared for a MH evaluation. At 22:56, malted milk mixer reports that Dr. Jack reviewed the pts case and will involuntarily admit the pt. - Differential Dx/Clinical Impression Provider Diagnosis: Psychosis Discharge ED - Sign-Out/Discharge Documenting (check all that apply): Patient Departure - Admit - Discharge Plan Condition: Fair Disposition: [place]YCHIATRIC FACILITY[place] [place] Billing Disposition and Condition Condition: FAIR Disposition: Psychiatric Facility [facility] - Attestation Statements Document Initiated by Scribe: Yes Documenting Scribe: Paty Jackson Provider For Whom Scribe is Documenting (Include Credential): Frankie Wagner MD Scribe Attestation: Paty East, scribed for Frankie Wagner MD on 09/02/19 at 1837. Scribe Documentation Reviewed: Yes Provider Attestation: The documentation as recorded by the Paty klein accurately reflects the service I personally performed and the decisions made by Frankie trejo MD Status of Scribe Document: Viewed Consult Consult: At 19:16, pt is medically cleared for a MH evaluation. At 22:56, malted milk mixer reports that Dr. Jack reviewed the pts case and will involuntarily admit the pt with a diagnosis of psychosis.
[2019-08-11 20:33] LABS: HIV 4th Generation Nonreactive (Nonreactive)
[2019-08-11] MEDS ORDERED: CloZAPine TAB* 100 MG TAB PO ONE (21:52)
[2019-08-11] MEDS ORDERED: Al Hydrox/Mg Hydrox/Simet LIQ* 30 ML UDC PO PRN (22:33)
[2019-08-12] MEDS: CloZAPine TAB* 100 MG TAB PO SCH ×3 (00:10→22:01)
[2019-08-12] MEDS: Vitamin THERAPEUTIC TAB PO SCH (13:36)
[2019-08-12] MEDS: Nicotine* 2MG (FRUIT FLAVOR) GUM PO PRN ×2 (14:08→20:46)
[2019-08-12] MEDS: Cetirizine* 10 MG TAB PO SCH (16:15)
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
[2019-08-12] MEDS ORDERED: Polyethylene Glycol 3350* 17 GM PACKET PO PRN (19:50)
[2019-08-12] MEDS ORDERED: Lithium Carbonate ER* 450 MG TAB.ER PO SCH (21:00)
[2019-08-12] MEDS ORDERED: Polyethylene Glycol 3350* 17 GM PACKET PO SCH (21:00)
[2019-08-12] MEDS ORDERED: Lithium Carbonate TAB* 300 MG PO SCH (21:00)
[2019-08-12] MEDS: Lithium Carbonate TAB* 300 MG PO SCH (22:01)
[2019-08-13] MEDS: Vitamin THERAPEUTIC TAB PO SCH (11:10)
[2019-08-13] MEDS: Lithium Carbonate TAB* 300 MG PO SCH ×2 (11:10→21:53)
[2019-08-13] MEDS: Cetirizine* 10 MG TAB PO SCH (11:10)
[2019-08-13] MEDS: Nicotine* 2MG (FRUIT FLAVOR) GUM PO PRN (13:15)
--- NOTE | 2019-08-13 15:37 | PN ---
Subjective - Subjective Date of Service: 08/13/19 Service Type: 52476 Hosp care 15 min low complexity Subjective: Hugo is pleasant and easy to talk to. She offers me a list of To Do items including asking for blood work results to be faxed to [facility], sending both lithium and clozapine to [facility] in [place], wanting Pepsi for lunch, and wanting Miralax in day rather than bedtime. She appears to be organized and euthymic, although anxious. She is task oriented for me and for Mariposa Rivera, for whom she has many requests, most of which are appropriate for outpatient case management with the exception of wanting to be connected with the ACT team. Hugo is worried about the dizziness she is experiencing. For example, she requested a shower chair so that she wouldn't fall. Her reported fear of leaving the house and of taking a shower were related to her certainty that she would fall. There have been no reports of her gait being unsteady, however. She states the congestion that was bothering her is reducing to a sore throat and an occasional cough. Objective - General Observations Appearance: Well Groomed Appears Stated Age: Yes Stature: Overweight Posture: WNL Eye Contact: Intense Behavior/Activity: Slowed, Peculiar - Interaction Observations Attitude Towards Examiner: Cooperative, Demanding Stated Mood: Anxious Speech Pattern/Tone: Clear Thought Process: Coherent, Loose Associations Perception: WNL Thought Content: Phobic Hallucination Type: Denies Delusion Type: Denies - Cognitive Function Orientation: A&O x 4 Level of Consciousness: Awake, Alert, Appropriate Cognition: Impaired Cognition, Impaired Ability to Abstract, Impaired Fund of Knowledge, Impaired Writing Estimated Intelligence: Normal Insight: Difficulty Acknowledging Presence of Psyciatric Problems Judgment Within Normal Limits: No Ability to Make Reasonable Decisions: Serverely Impaired - Medication Compliance Cooperative with Inpatient Medication Regimen: Yes - Group Participation Participates in Group Activities: Partial Assessment - Assessment Merits Inpatient Hospitalization: For Immediate Safety Inpatient DSM-V Dx: F25.0 Clinical Impression: Hugo is a 34-year-old female with a history of multiple hospitalizations for both mood and psychotic reasons who comes to the hospital after having a premonition that she would murder her father and worrying that people are accusing her of molesting children, neither of which she wants to do. Plan - Plan Treatment Plan: Name: HUGO ANDERS Birthdate: 1985 [id number] 08/13/19 Reduce lithium to 300 mg BID from prior discharge dose of 900 mg QHS. Attend to requests for Hugo to be more comfortable and empowered. Monitor gait for unsteadiness. Continued Medication Management: Continue Outpt Medication Medications: Current Medications Acetaminophen (Tylenol Tab*) 650 mg PO Q4H PRN PRN Reason: PAIN or TEMP > 101 F Al Hydrox/Mg Hydrox/Simethicone (Maalox Plus*) 30 ml PO Q4H PRN PRN Reason: INDIGESTION Cetirizine HCl (Zyrtec*) 10 mg PO DAILY [facility] Last Admin: 08/13/19 11:10 Dose: 10 mg Clozapine (Clozapine Tab*) 400 mg PO BEDTIME [facility] Last Admin: 08/12/19 22:01 Dose: 400 mg [place] Carbonate ([place] Carbonate Tab*) 300 mg PO BID [facility] Last Admin: 08/13/19 11:10 Dose: 300 mg Multivitamins (Theragran Tab*) 1 tab PO DAILY [facility] Last Admin: 08/13/19 11:10 Dose: Not Given Nicotine Polacrilex (Nicotine Gum*) 2 mg PO Q2H PRN PRN Reason: CRAVINGS Last Admin: 08/13/19 13:15 Dose: 2 mg Polyethylene Glycol/Electrolytes (Miralax*) 17 gm PO 0900 [facility]
[2019-08-13] MEDS: CloZAPine TAB* 100 MG TAB PO SCH (21:54)
[2019-08-14] MEDS: Polyethylene Glycol 3350* 17 GM PACKET PO SCH (09:49)
[2019-08-14] MEDS: Lithium Carbonate TAB* 300 MG PO SCH ×2 (09:50→22:02)
[2019-08-14] MEDS: Cetirizine* 10 MG TAB PO SCH (09:50)
[2019-08-14] MEDS: Vitamin THERAPEUTIC TAB PO SCH (09:51)
[2019-08-14] MEDS: Nicotine* 2MG (FRUIT FLAVOR) GUM PO PRN ×2 (09:52→18:11)
[2019-08-14 13:34] LABS: Clozapine 367 ng/mL (>350); Clozapine & Norclozapine Level 590 ng/mL (>450); Norclozapine 223 ng/mL
--- NOTE | 2019-08-14 21:53 | PN ---
Subjective - Subjective Date of Service: 08/14/19 Service Type: 02408 Hosp care 15 min low complexity Subjective: Hugo is "organized" in that she has lists of things that are concerning her, but not in that the items on the list are relevant to her stay here in the hospital. She is discussing discharge at the same time she is stating she wants to stay for two weeks. She took a shower today and had her hair put in sourav. Objective - General Observations Appearance: Well Groomed Appears Stated Age: Yes Stature: Overweight Posture: WNL Eye Contact: Average Behavior/Activity: Peculiar - Interaction Observations Attitude Towards Examiner: Cooperative Stated Mood: Euthymic Affect: Full Speech Pattern/Tone: Clear Thought Process: Coherent, Loose Associations, Flight of Ideas Perception: WNL Thought Content: Preoccupation/Ruminations Hallucination Type: Denies Delusion Type: Denies - Cognitive Function Orientation: A&O x 4 Level of Consciousness: Awake, Alert, Appropriate Cognition: Impaired Ability to Abstract Estimated Intelligence: Normal Insight: Difficulty Acknowledging Presence of Psyciatric Problems Judgment Within Normal Limits: No Ability to Make Reasonable Decisions: Moderately Impaired - Medication Compliance Cooperative with Inpatient Medication Regimen: Yes - Group Participation Participates in Group Activities: Partial Assessment - Assessment Merits Inpatient Hospitalization: For Immediate Safety Inpatient DSM-V Dx: F25.0 Clinical Impression: Hugo is a 34-year-old female with a history of multiple hospitalizations for both mood and psychotic reasons who comes to the hospital after having a premonition that she would murder her father and worrying that people are accusing her of molesting children, neither of which she wants to do. Plan - Plan Treatment Plan: Name: HUGO ANDERS Birthdate: 1985 [id number] 08/13/19 Reduce lithium to 300 mg BID from prior discharge dose of 900 mg QHS. Attend to requests for Hugo to be more comfortable and empowered. Monitor gait for unsteadiness. 08/14/19 Hugo reports dizziness. This will be monitored. Continue monitoring for hygiene, odd thoughts, psychosis, etc. Continued Medication Management: Continue Outpt Medication Medications: Current Medications Acetaminophen (Tylenol Tab*) 650 mg PO Q4H PRN PRN Reason: PAIN or TEMP > 101 F Al Hydrox/Mg Hydrox/Simethicone (Maalox Plus*) 30 ml PO Q4H PRN PRN Reason: INDIGESTION Cetirizine HCl (Zyrtec*) 10 mg PO DAILY [facility] Last Admin: 08/14/19 09:50 Dose: 10 mg Clozapine (Clozapine Tab*) 400 mg PO BEDTIME [facility] Last Admin: 08/13/19 21:54 Dose: 400 mg [place] Carbonate ([place] Carbonate Tab*) 300 mg PO BID [facility] Last Admin: 08/14/19 09:50 Dose: 300 mg Multivitamins (Theragran Tab*) 1 tab PO DAILY [facility] Last Admin: 08/14/19 09:51 Dose: 1 tab Nicotine Polacrilex (Nicotine Gum*) 2 mg PO Q2H PRN PRN Reason: CRAVINGS Last Admin: 08/14/19 18:11 Dose: 2 mg Polyethylene Glycol/Electrolytes (Miralax*) 17 gm PO 0900 [facility] Last Admin: 08/14/19 09:49 Dose: 17 gm
[2019-08-14] MEDS: CloZAPine TAB* 100 MG TAB PO SCH (22:02)
[2019-08-14] MEDS ORDERED: CloZAPine TAB* 100 MG TAB ONE (22:09)
[2019-08-15] MEDS: Lithium Carbonate TAB* 300 MG PO SCH ×2 (09:49→22:08)
[2019-08-15] MEDS: Cetirizine* 10 MG TAB PO SCH (09:49)
[2019-08-15] MEDS: Vitamin THERAPEUTIC TAB PO SCH (09:50)
[2019-08-15] MEDS: Polyethylene Glycol 3350* 17 GM PACKET PO SCH (09:50)
[2019-08-15] MEDS ORDERED: Ondansetron TAB* 4 MG PO ONE (13:15)
[2019-08-15] MEDS: Nicotine* 2MG (FRUIT FLAVOR) GUM PO PRN ×2 (14:36→20:30)
[2019-08-15] MEDS: CloZAPine TAB* 100 MG TAB PO SCH (22:08)
[2019-08-16] MEDS: Polyethylene Glycol 3350* 17 GM PACKET PO SCH (11:41)
[2019-08-16] MEDS: Cetirizine* 10 MG TAB PO SCH (11:41)
[2019-08-16] MEDS: Lithium Carbonate TAB* 300 MG PO SCH ×2 (11:42→22:08)
[2019-08-16] MEDS: Vitamin THERAPEUTIC TAB PO SCH (11:42)
--- NOTE | 2019-08-16 13:13 | PN ---
Subjective - Subjective Date of Service: 08/16/19 Service Type: 70408 Hosp care 25 min moderate complexity Subjective: Hugo has teamed up with a male peer on the unit and has been complaining of multiple somatic issues including dizziness. She thinks the dizziness is because of Clozapine. Sitting mostly by the nurses station. Denies hallucinations, delusions or SI. Copntinues to have passive thoughts of physical harm to her dad. Objective - General Observations Appearance: Unkempt Stature: Overweight Posture: WNL Eye Contact: Average Behavior/Activity: Stereotyped - Interaction Observations Attitude Towards Examiner: Cooperative, Anxious Stated Mood: Dysphoric Affect: Blunted Speech Pattern/Tone: Clear, Appropriate, Quiet Volume Thought Process: Circumstantial, [place] Perception: WNL Thought Content: Preoccupation/Ruminations, Depressive Thought Process: Lethality: Homicidal Ideation Hallucination Type: None, Denies Delusion Type: Somatic - Cognitive Function Orientation: A&O x 4 Level of Consciousness: Awake, Alert Cognition: WNL Estimated Intelligence: Normal Insight: Mostly Blames Others for Problems Ability to Make Reasonable Decisions: Moderately Impaired - Medication Compliance Cooperative with Inpatient Medication Regimen: Yes - Group Participation Participates in Group Activities: Partial Assessment - Assessment Merits Inpatient Hospitalization: For Immediate Safety, For Stabilization, For Discharge Planning Inpatient DSM-V Dx: F25.0 Clinical Impression: Hugo is a 34-year-old female with a history of multiple hospitalizations for both mood and psychotic reasons who comes to the hospital after having a premonition that she would murder her father and worrying that people are accusing her of molesting children, neither of which she wants to do. Plan - Plan Treatment Plan: Name: HUGO ANDERS Birthdate: 1985 [id number] 08/13/19 Reduce lithium to 300 mg BID from prior discharge dose of 900 mg QHS. Attend to requests for Hugo to be more comfortable and empowered. Monitor gait for unsteadiness. Continued Medication Management: Continue Outpt Medication Medications: Current Medications Acetaminophen (Tylenol Tab*) 650 mg PO Q4H PRN PRN Reason: PAIN or TEMP > 101 F Al Hydrox/Mg Hydrox/Simethicone (Maalox Plus*) 30 ml PO Q4H PRN PRN Reason: INDIGESTION Cetirizine HCl (Zyrtec*) 10 mg PO DAILY [facility] Last Admin: 08/16/19 11:41 Dose: 10 mg Clozapine (Clozapine Tab*) 400 mg PO BEDTIME [facility] Last Admin: 08/15/19 22:08 Dose: 400 mg [place] Carbonate ([place] Carbonate Tab*) 300 mg PO BID [facility] Last Admin: 08/16/19 11:42 Dose: 300 mg Multivitamins (Theragran Tab*) 1 tab PO DAILY [facility] Last Admin: 08/16/19 11:42 Dose: 1 tab Nicotine Polacrilex (Nicotine Gum*) 2 mg PO Q2H PRN PRN Reason: CRAVINGS Last Admin: 08/15/19 20:30 Dose: 2 mg Polyethylene Glycol/Electrolytes (Miralax*) 17 gm PO 0900 [facility] Last Admin: 08/16/19 11:41 Dose: 17 gm - Discharge Plan Discharge Plan: Outpatient Follow Up Outpatient Program: [facility]
[2019-08-16] MEDS: Nicotine* 2MG (FRUIT FLAVOR) GUM PO PRN (20:04)
[2019-08-16] MEDS: CloZAPine TAB* 100 MG TAB PO SCH (22:08)
[2019-08-17] MEDS: Polyethylene Glycol 3350* 17 GM PACKET PO SCH (09:59)
[2019-08-17] MEDS: Lithium Carbonate TAB* 300 MG PO SCH ×2 (09:59→21:59)
[2019-08-17] MEDS: Vitamin THERAPEUTIC TAB PO SCH (09:59)
[2019-08-17] MEDS: Cetirizine* 10 MG TAB PO SCH (09:59)
[2019-08-17] MEDS: Pseudoephedrine HCL ER TAB* 120 MG PO SCH ×2 (11:41→21:59)
--- NOTE | 2019-08-17 16:52 | PN ---
Subjective - Subjective Date of Service: 08/17/19 Service Type: 08045 Hosp care 15 min low complexity Subjective: Hugo is seen with Mariposa Rivera LMSW. Hugo has been mostly in bed today creating art with a pen in her composition book. She explains each piece with reference to herself most of the time. Everything has been gone over multiple times creating wrinkly sounding, shiny, ink-heavy pages with subject matter including [place] and houses and people. She reports continuing dizziness and has reported that she has been forced to crawl across the floor at times. Still , when observed ambulating, she shows no unsteadiness. Objective - General Observations Appearance: Malodorous, Neat Appears Stated Age: Yes Stature: Overweight Posture: WNL Eye Contact: Average Behavior/Activity: Slowed, Peculiar - Interaction Observations Attitude Towards Examiner: Cooperative Stated Mood: Expansive Affect: Full, Bright Speech Pattern/Tone: Clear, Rambling, Excessive Thought Process: Coherent Thought Content: Grandiose Hallucination Type: Denies Delusion Type: Denies - Cognitive Function Orientation: A&O x 4 Level of Consciousness: Awake, Alert Cognition: Impaired Cognition, Impaired Attention/Concentration, Impaired Ability to Abstract Estimated Intelligence: Normal Insight: Difficulty Acknowledging Presence of Psyciatric Problems Judgment Within Normal Limits: No Ability to Make Reasonable Decisions: Moderately Impaired - Medication Compliance Cooperative with Inpatient Medication Regimen: Yes - Group Participation Participates in Group Activities: Partial Assessment - Assessment Merits Inpatient Hospitalization: For Immediate Safety, For Discharge Planning Inpatient DSM-V Dx: F25.0 Clinical Impression: Hugo is a 34-year-old female with a history of multiple hospitalizations for both mood and psychotic reasons who comes to the hospital after having a premonition that she would murder her father and worrying that people are accusing her of molesting children, neither of which she wants to do. Plan - Plan Treatment Plan: Name: HUGO ANDERS Birthdate: 1985 [id number] 08/13/19 Reduce lithium to 300 mg BID from prior discharge dose of 900 mg QHS. Attend to requests for Hugo to be more comfortable and empowered. Monitor gait for unsteadiness. 08/14/19 Hugo reports dizziness. This will be monitored. Continue monitoring for hygiene, odd thoughts, psychosis, etc. 08/17/19 Start Sudafed for ears being congested due to a residual cold. I have consulted with pharmacy who indicate that the combination of clozapine and lithium would NOT cause dizziness and that the Zyrtec that is being administered has a <2% chance of causing dizziness. I am unwilling to stop either clozapine or lithium as her dizziness could be a somatic delusion and she is more in need of a mood stabilizer at this time. Further, the timeline of starting lithium does not align with her dizziness. Continued Medication Management: Different Medication Medications: Current Medications Acetaminophen (Tylenol Tab*) 650 mg PO Q4H PRN PRN Reason: PAIN or TEMP > 101 F Al Hydrox/Mg Hydrox/Simethicone (Maalox Plus*) 30 ml PO Q4H PRN PRN Reason: INDIGESTION Cetirizine HCl (Zyrtec*) 10 mg PO DAILY [facility] Last Admin: 08/17/19 09:59 Dose: 10 mg Clozapine (Clozapine Tab*) 400 mg PO BEDTIME [facility] Last Admin: 08/16/19 22:08 Dose: 400 mg [place] Carbonate ([place] Carbonate Tab*) 300 mg PO BID [facility] Last Admin: 08/17/19 09:59 Dose: 300 mg Multivitamins (Theragran Tab*) 1 tab PO DAILY [facility] Last Admin: 08/17/19 09:59 Dose: 1 tab Nicotine Polacrilex (Nicotine Gum*) 2 mg PO Q2H PRN PRN Reason: CRAVINGS Last Admin: 08/16/19 20:04 Dose: 2 mg Polyethylene Glycol/Electrolytes (Miralax*) 17 gm PO 0900 [facility] Last Admin: 08/17/19 09:59 Dose: 17 gm Pseudoephedrine HCl (Sudafed 12 Hour*) 120 mg PO BID [facility] Last Admin: 08/17/19 11:41 Dose: 120 mg
[2019-08-17] MEDS: Nicotine* 2MG (FRUIT FLAVOR) GUM PO PRN (20:20)
[2019-08-17] MEDS: CloZAPine TAB* 100 MG TAB PO SCH (21:59)
[2019-08-18] MEDS: Nicotine* 2MG (FRUIT FLAVOR) GUM PO PRN ×2 (09:35→20:14)
[2019-08-18] MEDS: Cetirizine* 10 MG TAB PO SCH (09:53)
[2019-08-18] MEDS: Pseudoephedrine HCL ER TAB* 120 MG PO SCH ×2 (09:53→22:05)
[2019-08-18] MEDS: Polyethylene Glycol 3350* 17 GM PACKET PO SCH (09:53)
[2019-08-18] MEDS: Vitamin THERAPEUTIC TAB PO SCH (09:54)
[2019-08-18] MEDS: Lithium Carbonate TAB* 300 MG PO SCH ×2 (09:54→22:05)
[2019-08-18] MEDS: CloZAPine TAB* 100 MG TAB PO SCH (22:06)
[2019-08-19] MEDS: Pseudoephedrine HCL ER TAB* 120 MG PO SCH ×2 (10:02→21:56)
[2019-08-19] MEDS: Cetirizine* 10 MG TAB PO SCH (10:03)
[2019-08-19] MEDS: Lithium Carbonate TAB* 300 MG PO SCH ×2 (10:03→21:56)
[2019-08-19] MEDS: Vitamin THERAPEUTIC TAB PO SCH (10:03)
[2019-08-19] MEDS: Polyethylene Glycol 3350* 17 GM PACKET PO SCH (10:04)
[2019-08-19] MEDS: Nicotine* 2MG (FRUIT FLAVOR) GUM PO PRN ×2 (13:34→16:48)
--- NOTE | 2019-08-19 14:09 | PN ---
Subjective - Subjective Date of Service: 08/19/19 Service Type: 42736 Hosp care 15 min low complexity Subjective: Hugo is pleasant but odd today. She states the dizziness is improving, that it is worse in the morning. She still drops to her knees and crawls at times. This seems to be more of a somatic delusion as she walks steadily down the hallway. She is hyperverbal and silly most of the time, but she is also demanding, saying things such as, "I have to tell people to do things two or three times before they do them!" Objective - General Observations Appearance: Unkempt Appears Stated Age: No - older Stature: Overweight Posture: Slumped Eye Contact: Avoidant Behavior/Activity: Accelerated, Peculiar - Interaction Observations Attitude Towards Examiner: Cooperative, Other (See Comment) Stated Mood: Euthymic, Expansive Affect: Full, Bright Speech Pattern/Tone: Normal Volume, Rambling, Excessive Thought Process: Loose Associations, Tangential, Circumstantial, Over Inclusive , Racing Perception: WNL Thought Content: Preoccupation/Ruminations, Grandiose Hallucination Type: None Delusion Type: Denies - Cognitive Function Orientation: A&O x 4 Level of Consciousness: Awake, Alert, Appropriate Cognition: Impaired Cognition, Impaired Attention/Concentration, Impaired Ability to Abstract Estimated Intelligence: Normal Insight: Difficulty Acknowledging Presence of Psyciatric Problems Judgment Within Normal Limits: No Ability to Make Reasonable Decisions: Serverely Impaired - Medication Compliance Cooperative with Inpatient Medication Regimen: Yes - Group Participation Participates in Group Activities: No Assessment - Assessment Merits Inpatient Hospitalization: For Immediate Safety Inpatient DSM-V Dx: F25.0 Clinical Impression: Hugo is a 34-year-old female with a history of multiple hospitalizations for both mood and psychotic reasons who comes to the hospital after having a premonition that she would murder her father and worrying that people are accusing her of molesting children, neither of which she wants to do. She now is free of these delusions and is instead experiencing mood symptoms that indicate significant instability: from day to day her mood is shifting. Plan - Plan Treatment Plan: Name: HUGO ANDERS Birthdate: 1985 [id number] 08/13/19 Reduce lithium to 300 mg BID from prior discharge dose of 900 mg QHS. Attend to requests for Hugo to be more comfortable and empowered. Monitor gait for unsteadiness. 08/14/19 Hugo reports dizziness. This will be monitored. Continue monitoring for hygiene, odd thoughts, psychosis, etc. 08/17/19 Start Sudafed for ears being congested due to a residual cold. I have consulted with pharmacy who indicate that the combination of clozapine and lithium would NOT cause dizziness and that the Zyrtec that is being administered has a <2% chance of causing dizziness. I am unwilling to stop either clozapine or lithium as her dizziness could be a somatic delusion and she is more in need of a mood stabilizer at this time. Further, the timeline of starting lithium does not align with her dizziness. 08/19/19 Plan to increase [place] to 900 mg on Saturday (increase HS dose to 600 mg). Continue Sudafed. Consider involving neurology if dizziness does not improve. A hospitalist (Dr. Martin) was consulted who indicated that Sudafed was a reasonable intervention. Continued Medication Management: Different Medication Medications: Current Medications Acetaminophen (Tylenol Tab*) 650 mg PO Q4H PRN PRN Reason: PAIN or TEMP > 101 F Al Hydrox/Mg Hydrox/Simethicone (Maalox Plus*) 30 ml PO Q4H PRN PRN Reason: INDIGESTION Cetirizine HCl (Zyrtec*) 10 mg PO DAILY [facility] Last Admin: 08/19/19 10:03 Dose: 10 mg Clozapine (Clozapine Tab*) 400 mg PO BEDTIME [facility] Last Admin: 08/18/19 22:06 Dose: 400 mg [place] Carbonate ([place] Carbonate Tab*) 300 mg PO BID [facility] Last Admin: 08/19/19 10:03 Dose: 300 mg Multivitamins (Theragran Tab*) 1 tab PO DAILY [facility] Last Admin: 08/19/19 10:03 Dose: 1 tab Nicotine Polacrilex (Nicotine Gum*) 2 mg PO Q2H PRN PRN Reason: CRAVINGS Last Admin: 08/19/19 13:34 Dose: 2 mg Polyethylene Glycol/Electrolytes (Miralax*) 17 gm PO 0900 [facility] Last Admin: 08/19/19 10:04 Dose: 17 gm Pseudoephedrine HCl (Sudafed 12 Hour*) 120 mg PO BID [facility] Last Admin: 08/19/19 10:02 Dose: 120 mg
[2019-08-19] MEDS: CloZAPine TAB* 100 MG TAB PO SCH (21:56)
[2019-08-20] MEDS: Polyethylene Glycol 3350* 17 GM PACKET PO SCH (10:05)
[2019-08-20] MEDS: Lithium Carbonate TAB* 300 MG PO SCH ×2 (10:08→21:56)
[2019-08-20] MEDS: Cetirizine* 10 MG TAB PO SCH (10:08)
[2019-08-20] MEDS: Vitamin THERAPEUTIC TAB PO SCH (10:08)
[2019-08-20] MEDS: Pseudoephedrine HCL ER TAB* 120 MG PO SCH ×2 (10:10→21:58)
[2019-08-20] MEDS: CloZAPine TAB* 100 MG TAB PO SCH (21:57)
[2019-08-21] MEDS: Pseudoephedrine HCL ER TAB* 120 MG PO SCH ×2 (11:28→22:07)
[2019-08-21] MEDS: Vitamin THERAPEUTIC TAB PO SCH (11:28)
[2019-08-21] MEDS: Lithium Carbonate TAB* 300 MG PO SCH ×2 (11:28→22:06)
[2019-08-21] MEDS: Cetirizine* 10 MG TAB PO SCH (11:28)
[2019-08-21] MEDS: Polyethylene Glycol 3350* 17 GM PACKET PO SCH (11:29)
[2019-08-21] MEDS: CloZAPine TAB* 100 MG TAB PO SCH (22:06)
--- NOTE | 2019-08-21 23:39 | PN ---
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 She is demanding in that she feels like she has to "hound" staff to get what she needs and wants. She would like to be connected with [employer] and [employer]. She would like her father the be her rep payee, have a shower chair, a new bed, and a washer and dryer. Objective - General Observations Appearance: Disheveled Appears Stated Age: Yes Stature: Overweight Posture: WNL Eye Contact: Intense Behavior/Activity: Peculiar - Interaction Observations Attitude Towards Examiner: Cooperative, Anxious, Demanding Stated Mood: Elevated Affect: Bright Speech Pattern/Tone: Clear, Appropriate, Normal Volume, Rambling Thought Process: Coherent, Loose Associations, Tangential Perception: WNL Thought Content: Preoccupation/Ruminations Hallucination Type: None Delusion Type: None - Cognitive Function Orientation: A&O x 4 Level of Consciousness: Awake, Alert, Appropriate Cognition: Impaired Attention/Concentration Estimated Intelligence: Normal Insight: Difficulty Acknowledging Presence of Psyciatric Problems Judgment Within Normal Limits: No Ability to Make Reasonable Decisions: Moderately Impaired - Medication Compliance Cooperative with Inpatient Medication Regimen: Yes - Group Participation Participates in Group Activities: No Assessment - Assessment Merits Inpatient Hospitalization: For Immediate Safety Inpatient DSM-V Dx: F25.0 Clinical Impression: Hugo is a 34-year-old female with a history of multiple hospitalizations for both mood and psychotic reasons who comes to the hospital after having a premonition that she would murder her father and worrying that people are accusing her of molesting children, neither of which she wants to do. She now is free of these delusions and is instead experiencing mood symptoms that indicate significant instability: from day to day her mood is shifting. Plan - Plan Treatment Plan: Name: HUGO ANDERS Birthdate: 1985 [id number] 08/13/19 Reduce lithium to 300 mg BID from prior discharge dose of 900 mg QHS. Attend to requests for Hugo to be more comfortable and empowered. Monitor gait for unsteadiness. 08/14/19 Hugo reports dizziness. This will be monitored. Continue monitoring for hygiene, odd thoughts, psychosis, etc. 08/17/19 Start Sudafed for ears being congested due to a residual cold. I have consulted with pharmacy who indicate that the combination of clozapine and lithium would NOT cause dizziness and that the Zyrtec that is being administered has a <2% chance of causing dizziness. I am unwilling to stop either clozapine or lithium as her dizziness could be a somatic delusion and she is more in need of a mood stabilizer at this time. Further, the timeline of starting lithium does not align with her dizziness. 08/19/19 Plan to increase [place] to 900 mg on Saturday (increase HS dose to 600 mg). Continue Sudafed. Consider involving neurology if dizziness does not improve. A hospitalist (Dr. Martin) was consulted who indicated that Sudafed was a reasonable intervention. 08/21/19 The plan [facility] to [facility] Hugo does not know about thisplan. [place] is increased at bedtime to 600 mg. Continued Medication Management: Different Medication Medications: Current Medications Acetaminophen (Tylenol Tab*) 650 mg PO Q4H PRN PRN Reason: PAIN or TEMP > 101 F Al Hydrox/Mg Hydrox/Simethicone (Maalox Plus*) 30 ml PO Q4H PRN PRN Reason: INDIGESTION Cetirizine HCl (Zyrtec*) 10 mg PO DAILY [facility] Last Admin: 08/21/19 11:28 Dose: 10 mg Clozapine (Clozapine Tab*) 400 mg PO BEDTIME [facility] Last Admin: 08/21/19 22:06 Dose: 400 mg [place] Carbonate ([place] Carbonate Tab*) 600 mg PO BEDTIME [facility] Last Admin: 08/21/19 22:06 Dose: 600 mg [place] Carbonate ([place] Carbonate Tab*) 300 mg PO DAILY [facility] Multivitamins (Theragran Tab*) 1 tab PO DAILY [facility] Last Admin: 08/21/19 11:28 Dose: 1 tab Nicotine Polacrilex (Nicotine Gum*) 2 mg PO Q2H PRN PRN Reason: CRAVINGS Last Admin: 08/19/19 16:48 Dose: 2 mg Polyethylene Glycol/Electrolytes (Miralax*) 17 gm PO 0900 [facility] Last Admin: 08/21/19 11:29 Dose: 17 gm Pseudoephedrine HCl (Sudafed 12 Hour*) 120 mg PO BID [facility] Last Admin: 08/21/19 22:07 Dose: Not Given - Discharge Plan Discharge Plan: Consider Longer Term Tx
[2019-08-22] MEDS: Polyethylene Glycol 3350* 17 GM PACKET PO SCH (11:06)
[2019-08-22] MEDS: Pseudoephedrine HCL ER TAB* 120 MG PO SCH ×2 (11:06→22:09)
[2019-08-22] MEDS: Cetirizine* 10 MG TAB PO SCH (11:06)
[2019-08-22] MEDS: Lithium Carbonate TAB* 300 MG PO SCH ×2 (11:06→22:06)
[2019-08-22] MEDS: Vitamin THERAPEUTIC TAB PO SCH (11:06)
[2019-08-22] MEDS: CloZAPine TAB* 100 MG TAB PO SCH (22:07)
[2019-08-23] MEDS: Pseudoephedrine HCL ER TAB* 120 MG PO SCH ×3 (11:13→22:00)
[2019-08-23] MEDS: Cetirizine* 10 MG TAB PO SCH (11:13)
[2019-08-23] MEDS: Polyethylene Glycol 3350* 17 GM PACKET PO SCH (11:14)
[2019-08-23] MEDS: Lithium Carbonate TAB* 300 MG PO SCH ×2 (11:14→21:58)
[2019-08-23] MEDS: Vitamin THERAPEUTIC TAB PO SCH (11:14)
[2019-08-23] MEDS: CloZAPine TAB* 100 MG TAB PO SCH (21:58)
[2019-08-23] MEDS: Nicotine* 2MG (FRUIT FLAVOR) GUM PO PRN (22:07)
[2019-08-24] MEDS: Lithium Carbonate TAB* 300 MG PO SCH ×2 (10:17→22:02)
[2019-08-24] MEDS: Vitamin THERAPEUTIC TAB PO SCH (10:17)
[2019-08-24] MEDS: Pseudoephedrine HCL ER TAB* 120 MG PO SCH (10:18)
[2019-08-24] MEDS: Cetirizine* 10 MG TAB PO SCH (10:18)
[2019-08-24] MEDS: Polyethylene Glycol 3350* 17 GM PACKET PO SCH (10:18)
--- NOTE | 2019-08-24 15:31 | PN ---
Subjective - Subjective Date of Service: 08/24/19 Service Type: 24514 Hosp care 15 min low complexity Subjective: Hugo complains that her gait is "off." Sometimes it is too fast and sometimes too slow. She has been crawling around the unit. She states the Sudafed has made her "more dopier" and she remarks that other providers have been more honest with her than others. I will call the hospitalist and neurology services and discuss her case, as she has not improved and her symptoms wax and wane without clear provocation. Objective - General Observations Appearance: Disheveled Appears Stated Age: Yes Stature: Overweight Posture: Atypical Eye Contact: Intense Behavior/Activity: Peculiar, Impulsive - Interaction Observations Attitude Towards Examiner: Cooperative, Demanding Stated Mood: Dysphoric, Irritable Affect: Full Speech Pattern/Tone: Clear Thought Process: Loose Associations, Circumstantial Perception: WNL Thought Content: Preoccupation/Ruminations, Grandiose Hallucination Type: None Delusion Type: Somatic - Cognitive Function Orientation: A&O x 4 Level of Consciousness: Awake, Alert Cognition: Impaired Cognition, Impaired Attention/Concentration, Impaired Fund of Knowledge Estimated Intelligence: Normal Insight: Difficulty Acknowledging Presence of Psyciatric Problems Judgment Within Normal Limits: No Ability to Make Reasonable Decisions: Moderately Impaired - Medication Compliance Cooperative with Inpatient Medication Regimen: Yes - Group Participation Participates in Group Activities: No Assessment - Assessment Merits Inpatient Hospitalization: For Immediate Safety Inpatient DSM-V Dx: F25.0 Clinical Impression: Hugo is a 34-year-old female with a history of multiple hospitalizations for both mood and psychotic reasons who comes to the hospital after having a premonition that she would murder her father and worrying that people are accusing her of molesting children, neither of which she wants to do. She now is free of these delusions and is instead experiencing mood symptoms that indicate significant instability: from day to day her mood is shifting. Plan - Plan Treatment Plan: Name: HUGO ANDERS Birthdate: 1985 [id number] 08/13/19 Reduce lithium to 300 mg BID from prior discharge dose of 900 mg QHS. Attend to requests for Hugo to be more comfortable and empowered. Monitor gait for unsteadiness. 08/14/19 Hugo reports dizziness. This will be monitored. Continue monitoring for hygiene, odd thoughts, psychosis, etc. 08/17/19 Start Sudafed for ears being congested due to a residual cold. I have consulted with pharmacy who indicate that the combination of clozapine and lithium would NOT cause dizziness and that the Zyrtec that is being administered has a <2% chance of causing dizziness. I am unwilling to stop either clozapine or lithium as her dizziness could be a somatic delusion and she is more in need of a mood stabilizer at this time. Further, the timeline of starting lithium does not align with her dizziness. 08/19/19 Plan to increase [place] to 900 mg on Saturday (increase HS dose to 600 mg). Continue Sudafed. Consider involving neurology if dizziness does not improve. A hospitalist (Dr. Martin) was consulted who indicated that Sudafed was a reasonable intervention. 08/21/19 The plan is to refer Hugo to the [facility]. Hugo does not know about thisplan. [place] is increased at bedtime to 600 mg. 08/24/19 Hugo continues to have gait difficulties, but neurology has seen her and believes that they are not neurological in source. I will discontinue Sudafed as this is not likely helpful to her dizziness problem. Continued Medication Management: Different Medication Medications: Current Medications Acetaminophen (Tylenol Tab*) 650 mg PO Q4H PRN PRN Reason: PAIN or TEMP > 101 F Al Hydrox/Mg Hydrox/Simethicone (Maalox Plus*) 30 ml PO Q4H PRN PRN Reason: INDIGESTION Cetirizine HCl (Zyrtec*) 10 mg PO DAILY [facility] Last Admin: 08/24/19 10:18 Dose: Not Given Clozapine (Clozapine Tab*) 400 mg PO BEDTIME [facility] Last Admin: 08/23/19 21:58 Dose: 400 mg [place] Carbonate ([place] Carbonate Tab*) 600 mg PO BEDTIME [facility] Last Admin: 08/23/19 21:58 Dose: 600 mg [place] Carbonate ([place] Carbonate Tab*) 300 mg PO DAILY [facility] Last Admin: 08/24/19 10:17 Dose: 300 mg Multivitamins (Theragran Tab*) 1 tab PO DAILY [facility] Last Admin: 08/24/19 10:17 Dose: 1 tab Nicotine Polacrilex (Nicotine Gum*) 2 mg PO Q2H PRN PRN Reason: CRAVINGS Last Admin: 08/23/19 22:07 Dose: 2 mg Polyethylene Glycol/Electrolytes (Miralax*) 17 gm PO 0900 [facility] Last Admin: 08/24/19 10:18 Dose: 17 gm Pseudoephedrine HCl (Sudafed 12 Hour*) 120 mg PO BID [facility] Last Admin: 08/24/19 10:18 Dose: Not Given - Discharge Plan Discharge Plan: Consider Longer Term Tx
--- NOTE | 2019-08-24 16:14 | CONSULT ---
Consult Consult: Neurology Inpatient Consult Note Date of service: 08/24/2019 Reason for consult: Neurology was consulted by Carmen to evaluate the patient for dizziness. The history was obtained by the patient. Chief complaint: Dizziness History of Present Illness: Ms. Niya Gates is a 34-year-old female who has dizziness for the past four years. The dizziness is described as a mix of lightheadedness with minimal vertigo. The symptoms are triggered when standing and resolve upon sitting or laying down. The dizziness is associated with gait instability, where she has to crawl on the floor sometimes. When lightheaded, she has to walk fast or slow to preven herself from falling. The dizziness improves throughout the day and she feels at her best in the evening time, before she takes her night medications. The dizziness worsened over the past 3- 4 weeks. She was prescribed pseudophed with no improvement. She stated that her friend has the same type of dizziness that improved with Meclizine. She denied any tinnitus, hearing loss, visual disturbance, or headache. She feels "doped out." since she started lithium. She denied any focal weakness or paresthesia. She denied any falls or head trauma. Labs, Imaging and Other Diagnostics: LIthium: 0.57 Cloazpine: 367 IMAGING: No recent intracranial imaging. Past Medical History: Obesity, pituitary tumore, hypothyroidism, hypertension, hypertension, asthma, history of concussion when she was young. Family History: No family history of stroke or seizures. Social History: Tobacco use since high school. She denied alcohol or drug abuse. Medications: CloZAPine TAB* 400 mg PO BEDTIME tab 07/30/19 [Rx Confirmed 08/11/19] [place] Carbonate ER TAB* 900 mg PO BEDTIME #60 tab.er 07/30/19 [Rx Confirmed ] Allergies Sulfa (Sulfonamide Antibiotics) Allergy (Unknown, Verified 08/11/19 18:11) Unknown Reaction Details Review of Systems: A 14-point ROS was obtained and otherwise negative except for what was mentioned in the HPI. Physical Exam: 2 Vital Signs - 12 hr Temp Pulse Resp BP Pulse Ox 08/24/19 14:14 16 08/24/19 10:20 97.8 F 121 18 132/76 99 General: well nourished, well developed. Alert, cooperative, no apparent distress, appears stated age. Head: normocephalic, without obvious abnormality Eyes: conjunctivae/corneas clear Neck: supple, symmetrical. No carotid bruit. No lymphadenopathy. Lungs: clear to auscultation bilaterally, non-labored CV: regular rhythm, S1, S2 normal, radial pulses palpable Extremities: normal range of motion with no cyanosis. Skin: no skin lesions or lacerations Psych: affect-flat. Seems lonely and enjoyed the company. She is very pleasant and talkative. Tangential thought process. Neurological examination: Mental status: awake; alert and oriented to person, place, time, & general circumstances; speech & language including expression, naming, repetition, & comprehension was assessed and found to be normal. Cranial nerves: I: not tested II, III, IV, : normal confrontation B/L, Pupils midrange and reactive to light , normal consensual response; extraocular muscles are intact; no ptosis; no conjugate or asymmetrical nystagmus V /2/3: sensation is intact on forehead, cheeks, and jaw region VII: no facial droop; facial symmetry while smiling & wrinkling of forehead; tight lid closure VIII: able to hear throughout the history process IX & X: symmetric palatal elevation XI: normal strength against resistance XII: tongue is symmetrical & midline with no atrophy or fasciculations Motor (R/L): no abnormal movements, no pronator drift. Normal bulk and tone throughout. No fasciculations. Neck extension 5. Shoulder ROM is full. Shoulder abduction 5/5. Elbow flexion 5/5, extension 5/5. Wrist flexion 5/5, extension 5/5. Finger flexion 5/5, extension 5/5, abduction 5/5. Hip flexion 5/5, abduction 5/5. Knee flexion 5/5, extension 5/5. Ankle dorsiflexion 5/5, plantarflexion 5/5. Great toe extension 5/5. Reflexes R L Brachioradialis 2+ 2+ Biceps 2+ 2+ Triceps 2+ 2+ Patella 2+ 2+ Ankle 2+ 2+ Plantar flexor flexor Sensation is intact to light touch throughout. Normal vibration and proprioception at the great toes. Coordination: normal finger to nose and rapid alternating movements. Gait & Station: narrow based; normal stance and gait. No ataxia. She wanted a break when walking towards the near by desk. She sat down for a few seconds then got up and walked to the desired location where her objects were located. Assessment: 1. Postural lightheadedness of unclear etiology- - The differential diagnosis include side effects to anti-psychotic therapy with superimposed psychogenic dizziness. The fact that these symptoms cause her to crawl on the floor sometimes, but then she can be completely fine minutes to hours later suggests some functional rather than an organic pathology. - She has no focal neurological deficit (no nystagmus); thus the dizziness is not related to a primary [employer] disorder. Interestingly, the symptoms seem to get better before the next dose of Clozaril. This would suggest that Clozaril can be the culprit. However, the risk of taking her off the Clozaril outweighs the benefit. Recommendations: - Trial Meclizine 12.5 mg in the morning, or as needed (1-2 times a day) to see if it helps with the dizziness. - Discussed maneuvers and to slowly get up from a seated position to minimize the dizziness. - Discussed fall precautions - If she continues to have symptoms, follow-up with outpatient neurology. The patient reported seeing a neurologist in the past for similar problems. I cannot find any intracranial imaging in [facility]. - Call me for any questions Discussed the above recommendations with Carmen. Cheryl Manning MD
[2019-08-24] MEDS: CloZAPine TAB* 100 MG TAB PO SCH (22:02)
[2019-08-24] MEDS: Nicotine* 2MG (FRUIT FLAVOR) GUM PO PRN (22:04)
[2019-08-25] MEDS: Vitamin THERAPEUTIC TAB PO SCH (10:13)
[2019-08-25] MEDS: Lithium Carbonate TAB* 300 MG PO SCH ×2 (10:13→22:12)
[2019-08-25] MEDS: Polyethylene Glycol 3350* 17 GM PACKET PO SCH (10:13)
[2019-08-25] MEDS: Cetirizine* 10 MG TAB PO SCH (10:13)
[2019-08-25] MEDS: Meclizine TAB* 12.5 MG PO SCH (14:05)
[2019-08-25] MEDS: Nicotine* 2MG (FRUIT FLAVOR) GUM PO PRN (18:39)
[2019-08-25] MEDS: CloZAPine TAB* 100 MG TAB PO SCH (22:10)
[2019-08-26] MEDS: Lithium Carbonate TAB* 300 MG PO SCH ×2 (09:38→21:33)
[2019-08-26] MEDS: Cetirizine* 10 MG TAB PO SCH (09:38)
[2019-08-26] MEDS: Meclizine TAB* 12.5 MG PO SCH (09:39)
[2019-08-26] MEDS: Vitamin THERAPEUTIC TAB PO SCH (09:40)
[2019-08-26] MEDS: Polyethylene Glycol 3350* 17 GM PACKET PO SCH (09:40)
--- NOTE | 2019-08-26 16:14 | PN ---
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 The addition of meclizine did not have a positive or negative effect. Hugo now knows she is being sent to the [facility]. She doesn't really want to go, but she states she is making the best of it. The IRF is being sent today to be reviewed. Objective - General Observations Appearance: Disheveled Appears Stated Age: Yes Stature: Overweight Posture: WNL Eye Contact: Average Behavior/Activity: Slowed, Peculiar - Interaction Observations Attitude Towards Examiner: Cooperative Stated Mood: Euthymic Affect: Full Speech Pattern/Tone: Clear Thought Process: Coherent, Tangential Perception: WNL Thought Content: WNL Hallucination Type: None Delusion Type: Denies, Somatic - Cognitive Function Orientation: A&O x 4 Level of Consciousness: Awake, Alert, Appropriate Cognition: Impaired Cognition Estimated Intelligence: Normal Insight: Difficulty Acknowledging Presence of Psyciatric Problems Judgment Within Normal Limits: No Ability to Make Reasonable Decisions: Moderately Impaired - Medication Compliance Cooperative with Inpatient Medication Regimen: Yes - Group Participation Participates in Group Activities: No Assessment - Assessment Merits Inpatient Hospitalization: For Immediate Safety Inpatient DSM-V Dx: F25.0 Clinical Impression: Hugo is a 34-year-old female with a history of multiple hospitalizations for both mood and psychotic reasons who comes to the hospital after having a premonition that she would murder her father and worrying that people are accusing her of molesting children, neither of which she wants to do. She now is free of these delusions and is instead experiencing mood symptoms that indicate significant instability: from day to day her mood is shifting. Plan - Plan Treatment Plan: Name: HUGO ANDERS Birthdate: 1985 [id number] 08/13/19 Reduce lithium to 300 mg BID from prior discharge dose of 900 mg QHS. Attend to requests for Hugo to be more comfortable and empowered. Monitor gait for unsteadiness. 08/14/19 Hugo reports dizziness. This will be monitored. Continue monitoring for hygiene, odd thoughts, psychosis, etc. 08/17/19 Start Sudafed for ears being congested due to a residual cold. I have consulted with pharmacy who indicate that the combination of clozapine and lithium would NOT cause dizziness and that the Zyrtec that is being administered has a <2% chance of causing dizziness. I am unwilling to stop either clozapine or lithium as her dizziness could be a somatic delusion and she is more in need of a mood stabilizer at this time. Further, the timeline of starting lithium does not align with her dizziness. 08/19/19 Plan to increase Marie to 900 mg on Saturday (increase HS dose to 600 mg). Continue Sudafed. Consider involving neurology if dizziness does not improve. A hospitalist (Dr. Martin) was consulted who indicated that Sudafed was a reasonable intervention. 08/21/19 The plan is to refer Hugo to the [facility] next week. Hugo does not know about thisplan. Marie is increased at bedtime to 600 mg. 08/24/19 Hugo continues to have gait difficulties, but neurology has seen her and believes that they are not neurological in source. I will discontinue Sudafed as this is not likely helpful to her dizziness problem. 08/26/19 Hugo is being referred to [facility] today. She is aware of the transfer plan, but she is not completely happy about it. Meclizine will continue for now. Other medications will remain the same. Continued Medication Management: Different Medication Medications: Current Medications Acetaminophen (Tylenol Tab*) 650 mg PO Q4H PRN PRN Reason: PAIN or TEMP > 101 F Al Hydrox/Mg Hydrox/Simethicone (Maalox Plus*) 30 ml PO Q4H PRN PRN Reason: INDIGESTION Cetirizine HCl (Zyrtec*) 10 mg PO DAILY [facility] Last Admin: 08/26/19 09:38 Dose: 10 mg Clozapine (Clozapine Tab*) 400 mg PO BEDTIME [facility] Last Admin: 08/25/19 22:10 Dose: 400 mg [place] Carbonate (Marie Carbonate Tab*) 600 mg PO BEDTIME [facility] Last Admin: 08/25/19 22:12 Dose: 600 mg [place] Carbonate (Marie Carbonate Tab*) 300 mg PO DAILY [facility] Last Admin: 08/26/19 09:38 Dose: 300 mg Meclizine HCl (Antivert Tab*) 12.5 mg PO DAILY [facility] Last Admin: 08/26/19 09:39 Dose: 12.5 mg Multivitamins (Theragran Tab*) 1 tab PO DAILY [facility] Last Admin: 08/26/19 09:40 Dose: 1 tab Nicotine Polacrilex (Nicotine Gum*) 2 mg PO Q2H PRN PRN Reason: CRAVINGS Last Admin: 08/25/19 18:39 Dose: 2 mg Polyethylene Glycol/Electrolytes (Miralax*) 17 gm PO 0900 [facility] Last Admin: 08/26/19 09:40 Dose: 17 gm - Discharge Plan Discharge Plan: Consider Longer Term Tx
[2019-08-26] MEDS: Acetaminophen TAB* 325 MG PO PRN (16:55)
[2019-08-26] MEDS: CloZAPine TAB* 100 MG TAB PO SCH (21:32)
[2019-08-27] MEDS: Meclizine TAB* 12.5 MG PO SCH (09:50)
[2019-08-27] MEDS: Polyethylene Glycol 3350* 17 GM PACKET PO SCH (09:50)
[2019-08-27] MEDS: Cetirizine* 10 MG TAB PO SCH (09:50)
[2019-08-27] MEDS: Vitamin THERAPEUTIC TAB PO SCH (09:50)
[2019-08-27] MEDS: Lithium Carbonate TAB* 300 MG PO SCH ×2 (09:50→22:02)
[2019-08-27] MEDS: CloZAPine TAB* 100 MG TAB PO SCH (22:00)
[2019-08-28] MEDS: Acetaminophen TAB* 325 MG PO PRN ×2 (01:15→12:20)
[2019-08-28] MEDS: Cetirizine* 10 MG TAB PO SCH ×2 (11:00→11:03)
[2019-08-28] MEDS: Polyethylene Glycol 3350* 17 GM PACKET PO SCH (11:00)
[2019-08-28] MEDS: Meclizine TAB* 12.5 MG PO SCH (11:00)
[2019-08-28] MEDS: Vitamin THERAPEUTIC TAB PO SCH (11:00)
[2019-08-28] MEDS: Lithium Carbonate TAB* 300 MG PO SCH ×2 (11:00→22:36)
[2019-08-28] MEDS: Calcium Carbonate CHEW TAB* 500 MG (TUMS) PO PRN (12:39)
--- NOTE | 2019-08-28 15:23 | PN ---
Subjective - Subjective Date of Service: 08/28/19 Service Type: 64028 Hosp care 15 min low complexity Subjective: Hugo reports having an upset stomach but it could be from the heavy indulgence in Halloween treats. She states, "I'm sick of feeling like this." She is referring to the upset stomach as well as the dizziness she states she is experiencing. Objective - General Observations Appearance: Disheveled Appears Stated Age: Yes Stature: Overweight Posture: Slumped Eye Contact: Average Behavior/Activity: WNL - Interaction Observations Attitude Towards Examiner: Cooperative Stated Mood: Dysphoric Affect: Blunted Speech Pattern/Tone: Clear Thought Process: Coherent, Tangential Perception: WNL Thought Content: Preoccupation/Ruminations Hallucination Type: None Delusion Type: Somatic - Cognitive Function Orientation: A&O x 4 Level of Consciousness: Awake, Alert, Appropriate Cognition: Impaired Cognition, Impaired Attention/Concentration, Impaired Ability to Abstract Estimated Intelligence: Normal Insight: Difficulty Acknowledging Presence of Psyciatric Problems Judgment Within Normal Limits: No Ability to Make Reasonable Decisions: Mildly Impaired - Medication Compliance Cooperative with Inpatient Medication Regimen: Yes - Group Participation Participates in Group Activities: Partial Assessment - Assessment Merits Inpatient Hospitalization: For Immediate Safety Inpatient DSM-V Dx: F25.0 Clinical Impression: Hugo is a 34-year-old female with a history of multiple hospitalizations for both mood and psychotic reasons who comes to the hospital after having a premonition that she would murder her father and worrying that people are accusing her of molesting children, neither of which she wants to do. She now is free of these delusions and is instead experiencing mood symptoms that indicate significant instability: from day to day her mood is shifting. Plan - Plan Treatment Plan: Name: HUGO ANDERS Birthdate: 1985 [id number] 08/13/19 Reduce lithium to 300 mg BID from prior discharge dose of 900 mg QHS. Attend to requests for Hugo to be more comfortable and empowered. Monitor gait for unsteadiness. 08/14/19 Hugo reports dizziness. This will be monitored. Continue monitoring for hygiene, odd thoughts, psychosis, etc. 08/17/19 Start Sudafed for ears being congested due to a residual cold. I have consulted with pharmacy who indicate that the combination of clozapine and lithium would NOT cause dizziness and that the Zyrtec that is being administered has a <2% chance of causing dizziness. I am unwilling to stop either clozapine or lithium as her dizziness could be a somatic delusion and she is more in need of a mood stabilizer at this time. Further, the timeline of starting lithium does not align with her dizziness. 08/19/19 Plan to increase [place] to 900 mg on Saturday (increase HS dose to 600 mg). Continue Sudafed. Consider involving neurology if dizziness does not improve. A hospitalist (Dr. Martin) was consulted who indicated that Sudafed was a reasonable intervention. 08/21/19 The plan is to refer Hugo to the [facility] next week. Hugo does not know about thisplan. [place] is increased at bedtime to 600 mg. 08/24/19 Hugo continues to have gait difficulties, but neurology has seen her and believes that they are not neurological in source. I will discontinue Sudafed as this is not likely helpful to her dizziness problem. 08/26/19 Hugo is being referred to [facility] today. She is aware of the transfer plan, but she is not completely happy about it. Meclizine will continue for now. Other medications will remain the same. 08/28/19 Hugo is being prepared to go to the [facility] in [place]. This is scheduled for Saturday. Medications: Current Medications Acetaminophen (Tylenol Tab*) 650 mg PO Q4H PRN PRN Reason: PAIN or TEMP > 101 F Last Admin: 08/28/19 12:20 Dose: 650 mg Al Hydrox/Mg Hydrox/Simethicone (Maalox Plus*) 30 ml PO Q4H PRN PRN Reason: INDIGESTION Calcium Carbonate (Tums*) 500 mg PO Q4H PRN PRN Reason: upset stomach Last Admin: 08/28/19 12:39 Dose: 500 mg Cetirizine HCl (Zyrtec*) 10 mg PO DAILY [facility] Last Admin: 08/28/19 11:03 Dose: Not Given Clozapine (Clozapine Tab*) 400 mg PO BEDTIME [facility] Last Admin: 08/27/19 22:00 Dose: 400 mg [place] Carbonate ([place] Carbonate Tab*) 600 mg PO BEDTIME [facility] Last Admin: 08/27/19 22:02 Dose: 600 mg [place] Carbonate ([place] Carbonate Tab*) 300 mg PO DAILY [facility] Last Admin: 08/28/19 11:00 Dose: 300 mg Meclizine HCl (Antivert Tab*) 12.5 mg PO DAILY [facility] Last Admin: 08/28/19 11:00 Dose: 12.5 mg Multivitamins (Theragran Tab*) 1 tab PO DAILY [facility] Last Admin: 08/28/19 11:00 Dose: 1 tab Nicotine Polacrilex (Nicotine Gum*) 2 mg PO Q2H PRN PRN Reason: CRAVINGS Last Admin: 08/25/19 18:39 Dose: 2 mg Polyethylene Glycol/Electrolytes (Miralax*) 17 gm PO 0900 [facility] Last Admin: 08/28/19 11:00 Dose: 17 gm - Discharge Plan Discharge Plan: Inpatient Hospitalization
[2019-08-28] MEDS ORDERED: Ibuprofen TAB* 600 MG ONE (16:44)
[2019-08-28] MEDS: CloZAPine TAB* 100 MG TAB PO SCH (22:35)
[2019-08-29] MEDS: Ibuprofen TAB* 600 MG PO PRN ×2 (09:51→17:42)
[2019-08-29] MEDS: Cetirizine* 10 MG TAB PO SCH ×2 (09:51→09:55)
[2019-08-29] MEDS: Meclizine TAB* 12.5 MG PO SCH (09:51)
[2019-08-29] MEDS: Vitamin THERAPEUTIC TAB PO SCH (09:52)
[2019-08-29] MEDS: Polyethylene Glycol 3350* 17 GM PACKET PO SCH (09:53)
[2019-08-29] MEDS: Lithium Carbonate TAB* 300 MG PO SCH ×2 (09:53→21:54)
[2019-08-29] MEDS: Calcium Carbonate CHEW TAB* 500 MG (TUMS) PO PRN (19:50)
[2019-08-29] MEDS: CloZAPine TAB* 100 MG TAB PO SCH (21:54)
[2019-08-30] MEDS: Vitamin THERAPEUTIC TAB PO SCH (10:52)
[2019-08-30] MEDS: Lithium Carbonate TAB* 300 MG PO SCH ×2 (10:52→22:01)
[2019-08-30] MEDS: Meclizine TAB* 12.5 MG PO SCH (10:52)
[2019-08-30] MEDS: Cetirizine* 10 MG TAB PO SCH ×2 (10:52→10:55)
[2019-08-30] MEDS: Polyethylene Glycol 3350* 17 GM PACKET PO SCH (10:53)
[2019-08-30] MEDS: Nicotine* 2MG (FRUIT FLAVOR) GUM PO PRN ×2 (14:49→20:22)
[2019-08-30] MEDS: Ibuprofen TAB* 600 MG PO PRN ×2 (15:51→22:04)
[2019-08-30] MEDS: CloZAPine TAB* 100 MG TAB PO SCH (22:01)
[2019-08-31] MEDS: Meclizine TAB* 12.5 MG PO SCH (10:05)
[2019-08-31] MEDS: Polyethylene Glycol 3350* 17 GM PACKET PO SCH (10:06)
[2019-08-31] MEDS: Vitamin THERAPEUTIC TAB PO SCH (10:06)
[2019-08-31] MEDS: Lithium Carbonate TAB* 300 MG PO SCH ×2 (10:06→22:05)
[2019-08-31] MEDS: Cetirizine* 10 MG TAB PO SCH (10:07)
[2019-08-31] MEDS: Ibuprofen TAB* 600 MG PO PRN ×2 (14:55→22:09)
--- NOTE | 2019-08-31 15:29 | PN ---
Subjective - Subjective Date of Service: 08/31/19 Service Type: [id number] Hosp care 15 min low complexity Subjective: Hugo was scheduled to go to [facility] today, but due to a scheduling problem, her departure has been delayed until tomorrow morning. Hugo is in a good mood, although she doesn't want to go to [facility] very much. She is hoping to be discharged before [facility]. Hugo thinks the meclizine is helping her balance a little bit. She also feels like lithium has helped slow the racing thoughts. Objective - General Observations Appearance: Disheveled Appears Stated Age: Yes Stature: Overweight Posture: Slumped Eye Contact: Average Behavior/Activity: WNL - Interaction Observations Attitude Towards Examiner: Cooperative, Anxious Stated Mood: Dysphoric Affect: Full Speech Pattern/Tone: Clear Thought Process: Coherent, Loose Associations, Tangential Perception: WNL Thought Content: Preoccupation/Ruminations Hallucination Type: None Delusion Type: Denies, Somatic - Cognitive Function Orientation: A&O x 4 Level of Consciousness: Awake, Alert, Appropriate Cognition: Impaired Cognition, Impaired Attention/Concentration Estimated Intelligence: Normal Insight: Difficulty Acknowledging Presence of Psyciatric Problems Judgment Within Normal Limits: No Ability to Make Reasonable Decisions: Mildly Impaired - Medication Compliance Cooperative with Inpatient Medication Regimen: Yes - Group Participation Participates in Group Activities: Partial Assessment - Assessment Merits Inpatient Hospitalization: For Immediate Safety Inpatient DSM-V Dx: F25.0 Clinical Impression: Hugo is a 34-year-old female with a history of multiple hospitalizations for both mood and psychotic reasons who comes to the hospital after having a premonition that she would murder her father and worrying that people are accusing her of molesting children, neither of which she wants to do. She now is free of these delusions and is instead experiencing mood symptoms that indicate significant instability: from day to day her mood is shifting. Plan - Plan Treatment Plan: Name: HUGO ANDERS Birthdate: 1985 [id number] 08/13/19 Reduce lithium to 300 mg BID from prior discharge dose of 900 mg QHS. Attend to requests for Hugo to be more comfortable and empowered. Monitor gait for unsteadiness. 08/14/19 Hugo reports dizziness. This will be monitored. Continue monitoring for hygiene, odd thoughts, psychosis, etc. 08/17/19 Start Sudafed for ears being congested due to a residual cold. I have consulted with pharmacy who indicate that the combination of clozapine and lithium would NOT cause dizziness and that the Zyrtec that is being administered has a <2% chance of causing dizziness. I am unwilling to stop either clozapine or lithium as her dizziness could be a somatic delusion and she is more in need of a mood stabilizer at this time. Further, the timeline of starting lithium does not align with her dizziness. 08/19/19 Plan to increase [place] to 900 mg on Saturday (increase HS dose to 600 mg). Continue Sudafed. Consider involving neurology if dizziness does not improve. A hospitalist (Dr. Martin) was consulted who indicated that Sudafed was a reasonable intervention. 08/21/19 The plan is to refer Hugo to the [facility] next week. Hugo does not know about thisplan. [place] is increased at bedtime to 600 mg. 08/24/19 Hugo continues to have gait difficulties, but neurology has seen her and believes that they are not neurological in source. I will discontinue Sudafed as this is not likely helpful to her dizziness problem. 08/26/19 Hugo is being referred to [facility] today. She is aware of the transfer plan, but she is not completely happy about it. Meclizine will continue for now. Other medications will remain the same. 08/28/19 Hugo is being prepared to go to the [facility] in [place]. This is scheduled for Saturday. 08/31/19 Hugo's transferred has to wait until tomorrow. She is in relatively good spirits although reluctant to go to the [facility]. Continued Medication Management: Different Medication Medications: Current Medications Acetaminophen (Tylenol Tab*) 650 mg PO Q4H PRN PRN Reason: PAIN or TEMP > 101 F Last Admin: 08/28/19 12:20 Dose: 650 mg Al Hydrox/Mg Hydrox/Simethicone (Maalox Plus*) 30 ml PO Q4H PRN PRN Reason: INDIGESTION Calcium Carbonate (Tums*) 500 mg PO Q4H PRN PRN Reason: upset stomach Last Admin: 08/29/19 19:50 Dose: 500 mg Cetirizine HCl (Zyrtec*) 10 mg PO DAILY [facility] Last Admin: 08/31/19 10:07 Dose: Not Given Clozapine (Clozapine Tab*) 400 mg PO BEDTIME [facility] Last Admin: 08/30/19 22:01 Dose: 400 mg Ibuprofen (Motrin Tab*) 600 mg PO Q6H PRN PRN Reason: PAIN - MILD Last Admin: 08/31/19 14:55 Dose: 600 mg [place] Carbonate ([place] Carbonate Tab*) 600 mg PO BEDTIME [facility] Last Admin: 08/30/19 22:01 Dose: 600 mg [place] Carbonate ([place] Carbonate Tab*) 300 mg PO DAILY [facility] Last Admin: 08/31/19 10:06 Dose: 300 mg Meclizine HCl (Antivert Tab*) 12.5 mg PO DAILY [facility] Last Admin: 08/31/19 10:05 Dose: 12.5 mg Multivitamins (Theragran Tab*) 1 tab PO DAILY [facility] Last Admin: 08/31/19 10:06 Dose: 1 tab Nicotine Polacrilex (Nicotine Gum*) 2 mg PO Q2H PRN PRN Reason: CRAVINGS Last Admin: 08/30/19 20:22 Dose: 2 mg Polyethylene Glycol/Electrolytes (Miralax*) 17 gm PO 0900 [facility] Last Admin: 08/31/19 10:06 Dose: 17 gm - Discharge Plan Discharge Plan: Inpatient Hospitalization
[2019-08-31] MEDS: CloZAPine TAB* 100 MG TAB PO SCH (22:05)
[2019-08-31] MEDS: Nicotine* 2MG (FRUIT FLAVOR) GUM PO PRN (22:09)
[2019-09-01] MEDS: Meclizine TAB* 12.5 MG PO SCH (09:20)
[2019-09-01] MEDS: Cetirizine* 10 MG TAB PO SCH ×2 (09:20→09:22)
[2019-09-01] MEDS: Vitamin THERAPEUTIC TAB PO SCH (09:20)
[2019-09-01] MEDS: Lithium Carbonate TAB* 300 MG PO SCH (09:21)
[2019-09-01] MEDS: Polyethylene Glycol 3350* 17 GM PACKET PO SCH (09:21)
[2019-09-01 09:35] VITALS: BP 106/65
--- NOTE | 2019-09-01 23:35 | DS ---
DISCHARGE SUMMARY: DATE OF ADMISSION: 08/11/19 DATE OF DISCHARGE: 09/01/19 PROVIDER: Carrie Bhandari NP in Psychiatry. SUPERVISING PHYSICIAN: Dr. Peter Hayden.* (DICTATED BY CARRIE BHANDARI NP) DIAGNOSES: Schizoaffective disorder. CONDITION AT THE TIME OF DISCHARGE: Moderately improved, psychiatrically cleared, currently stable. Niya did not participate in groups, but was very social with peers. She is being discharged to [facility]. She had difficulty here psychiatrically. She did tolerate her medications well, although she was dizzy for much of the time and she attributed that to clozapine, which she has been taking for 4 years with some dizziness in the past. MENTAL STATUS EXAMINATION: At the time of discharge, Niya is calm, cooperative , and makes good eye contact. She is alert and oriented x4. Her speech pace is slow. Her thought processes are logical. She is not frankly psychotic, although there does appear to be a psychotic process going on. She is not obviously delusional. She denies AH, VH, SI, and HI. Insight and judgment are fair. She is encouraged to participate at [facility]. DISCHARGE INSTRUCTIONS TO THE PATIENT: A. Medications: She is being discharged on: 1. Tylenol 650 mg q.4 hours p.r.n. pain. 2. Maalox Plus 30 mL q.4 hours p.r.n. upset stomach. 3. Tums 500 mg q.4 hours p.r.n. upset stomach. 4. Zyrtec 10 mg daily. 5. Clozapine 400 mg at bedtime. 6. Ibuprofen 600 mg q.6 hours p.r.n. pain. 7. Brock ER 900 mg at bedtime. 8. Nicotine gum 2 mg q.2 hours p.r.n. craving. 9. Polyethylene glycol daily 17 g packet. 10. Vitamin daily. B. Diet is regular. C. Activities: As tolerated. She is a smoker, but has declined referral to the [place] [employer] Quit line at this time. If she decides to access this free service in the future, she can contact the quit line toll-free at . There are no studies pending at the time of discharge. D. Followup care: She is being transferred to [facility]. E. Disposition: She is being sent to [facility] for further treatment. F. Substance abuse followup: Is not indicated. HOSPITAL COURSE: Part A: Chief complaint: "I have never had racing thoughts like these before." The patient is a 34-year-old single white female with a history of schizoaffective disorder, who arrived, brought in by police and was here on a 9.39 status after her father called the police. Niya had a premonition that she was going to kill her father. Her father was alarmed and he called the emergency services and they took her to the emergency department. Niya has been seen in the emergency department on 08/07/19, 08/09/19, and then on 08/11/19; on that date, she was admitted to the [facility]. She has in the past been complaining about dizziness, being forgetful, not remembering how to walk. These were assessed to be side effects of lithium and the lithium was stopped by an emergency department doctor. Niya reports that in the last 2 days she has only gotten 10 hours of sleep due to her mind racing. Niya in the past has been very susceptible to reduced sleep, which has caused her to have strange thoughts and shifting into either a manic or depressive episode. She reports that her mind is racing and that the thoughts she is having are frightening. She did have a premonition that she was going to kill her father. She is also worried about being accused of child molestation. She states this is scary and not an experience that she has had before. According to her emergency department records, on 08/07/19, she brought a list that stated "things to talk to doctor about: 1. When I stand up, I feel dizzy. 2. I am starting to forget things. 3. I keep falling. 4. I am afraid to leave the house. 5. Afraid to have a shower. 6. I have a hard time doing daily activities. 7. I had a lesion on brain." The emergency department interpreted several of these as side effects of lithium and then they stopped it completely. It appears that Niya has been having psychiatric problems shortly after she left the hospital on 07/30/19, as evidenced by her fear to leave the house or take a shower. In addition, the lesion on her brain, I looked up and there is no information on her having a CT or an MRI in our records back to 2000. She is disorganized. She wants to change to a new medication. She is sleepy, does not want to speak to me, has her eyes closed and yet speaks in a not sleepy voice, but is willing to talk anyway. She is pleasant, but also acknowledges that her thoughts have been strange and bothersome and are alarming to her. She does not seem to have an idea of what she would like to do about this. I did try to get some collateral from [facility] and they indicated that she has not always been attending her appointments and that she has not been doing well for "a while." B. Psychiatric treatment was rendered: Niya was admitted to the adult behavioral unit and placed on 15-minute checks for safety. She did advance to 30-minute checks and staff pass privileges. She was safe on all checks. Niya did well on the unit. She did not go to groups stating that she has been to all the groups before and they do not help. She did color and draw and sketch with a black pen in her composition book for days at a time creating what she was terming masterpieces and giving them away to different individuals with loose associations according to their name. For example, my name was Carrie, the psychic chang because I worked in psychiatry. She was Niya, the water chang because on her water bottle, it had been written [id number]. Niya is charming and easy to talk to. She has some odd beliefs and the following is day-to-day followup of the second half of her care. On 08/13/19, we reduced lithium to 300 mg twice a day from the prior discharge dose of 900 mg at bedtime, lithium ER. We monitored her gait for unsteadiness. On 08/14/19 , Niya reported dizziness, which was continued to be monitored. We looked to watch for her personal hygiene, odd thoughts, and psychosis. On 08/17/19, we started Sudafed for her ears being congested due to residual cold. I consulted with the pharmacy, who indicated that the combination of clozapine and lithium would not cause dizziness and that the Zyrtec that is being administered has a less than 2% chance of causing dizziness. It was unwise to stop the clozapine or the lithium as they are powerful agents that have kept her stable for many years. Her dizziness could be a somatic delusion and she is in need of a mood stabilizer at this time. Further, the timeline of starting lithium does not align with her dizziness. On 08/19/19, plan to increase lithium to 900 mg on Saturday that is increase the bedtime dose to 600 mg. Continue the Sudafed. Consider involving Neurology if dizziness does not improve. The hospitalist was consulted, who indicated that Sudafed was a reasonable intervention. On 08/21/19, the plan to refer to Niya to [facility] will occur in a few days. On 08/24/19, Niya continued to have gait difficulties, but Neurology had seen her and believed that they are not neurological in source. I will discontinue Sudafed as this is not likely helpful to her dizziness problem. The doctor recommended meclizine. On 08/26/19, Niya was referred to the [facility]. She is now aware of the transfer plan, but she is not happy about it. Meclizine was started 2 days ago and will continue for now. Other medications will remain the same. On 08/28/19, Niya was being prepared to go to the [facility] in [place] , which was scheduled for Saturday. On 08/31/19, Niya's transfer has to wait until the next day. She is in relatively good spirits, although reluctant to go to the [facility]. Niya is on clozapine and as that is an antipsychotic, we should note that her hemoglobin A1c on 07/24/19 was 5.7%. Her lipid profile on 07/24/19 included triglycerides at 142, cholesterol 168, LDL cholesterol 106, HDL cholesterol 33.7. Her TSH was 2.61. A neurology consult was entered as mentioned and the belief is that this may be due to psychiatric medications, but also may be due to a somatic delusion. Niya is improved over her arrival here. She remains moderately symptomatic, however, and she is unreliable in the outpatient setting. She tends to destabilize rapidly, which has been the experience of the last 2 recent admissions and we are hopeful that a longer stay will help to stabilize her as she had been stable for several years prior to these hospitalization which started in May and June. We wish Niya farley at [facility]. She is future oriented and she can find several reasons why she is happy to go. She is positive minded about this. CARRIE BHANDARI, [place] [id number]/[facility] #: [id number] [place]
== END 2019-09-01 11:27 | disposition short-term general hospital (02) | DRG 885 ==
LOC: ED 17:52 → BSU 21:46
PROVIDERS: ADMIT Psychiatry & Neurology Psychiatry; ATTEND Psychiatry & Neurology Psychiatry
DX: F25.0 Schizoaffective disorder, bipolar type (principal); R45.851 Suicidal ideations; Z68.42 Body mass index [BMI] 45.0-49.9, adult; E78.00 Pure hypercholesterolemia, unspecified; I10 Essential (primary) hypertension; J45.909 Unspecified asthma, uncomplicated; F41.9 Anxiety disorder, unspecified; F17.210 Nicotine dependence, cigarettes, uncomplicated; R45.850 Homicidal ideations; F60.3 Borderline personality disorder; E03.9 Hypothyroidism, unspecified; D35.2 Benign neoplasm of pituitary gland; E66.01 Morbid (severe) obesity due to excess calories; F34.1 Dysthymic disorder; R42 Dizziness and giddiness; H83.8X3 Other specified diseases of inner ear, bilateral; J00 Acute nasopharyngitis [common cold]; R26.81 Unsteadiness on feet; Z88.2 Allergy status to sulfonamides; Z91.5 Personal history of self-harm
CPT/HCPCS: 36415; 80053; 80159; 80178; 85025; 87086; 87389; 93005; 99222; 99231; 99232; 99238; 99283; A9270-GY